=== PATIENT | male | born 1950 | race Two or more races ===

== ENCOUNTER 2020-01-11 06:41 | Outpatient (REF) | payer OTHER, SELFPAY ==
[2020-01-11 09:17] LABS: Ammonia 42 umol/L (13-55)
== END 2020-01-11 06:42 | disposition home or self-care (01) ==
LOC: HO.HSH1N 06:41
PROVIDERS: Visit Provider Internal Medicine Interventional Cardiology
DX: C22.0 Liver cell carcinoma (principal); R41.82 Altered mental status, unspecified
CPT/HCPCS: 36415; 82140

== ENCOUNTER 2020-01-14 08:31 | Outpatient (REF) | payer OTHER, SELFPAY ==
[2020-01-14 12:12] LABS: Alanine Aminotransferase 40 U/L (0-40); Alkaline Phosphatase 63 U/L (39-117); Anion Gap 8 (12-20); Aspartate Amino Transferase 39 U/L (5-37); Bilirubin Total 0.3 mg/dL (0.0-1.0); Blood Urea Nitrogen 25 mg/dL (9-16); Calcium 7.2 mg/dL (8.4-10.2); Carbon Dioxide 27 mmol/L (22-29); Chloride 112 mmol/L (96-108); Estimated Glomerular Filt Rate > 60; Glucose Fasting 93 mg/dL (60-99); Sodium 143 mmol/L (135-145); Total Protein 4.6 g/dL (6.5-8.0)
[2020-01-15 13:06] LABS: Vitamin D 25-OH Total < 3.4 ng/mL (>30)
== END 2020-01-14 08:32 | disposition home or self-care (01) ==
LOC: HO.HSH1N 08:31
PROVIDERS: Visit Provider Internal Medicine Medical Oncology
DX: C22.9 Malignant neoplasm of liver, not specified as primary or secondary (principal); E55.9 Vitamin D deficiency, unspecified
CPT/HCPCS: 80053; 82306

== ENCOUNTER 2020-01-15 07:17 | Outpatient (REF) | payer OTHER, SELFPAY ==
[2020-01-15 08:39] LABS: MANUAL DIFF FLAG NO
[2020-01-15 08:58] LABS: Eosinophils Absolute Auto 0.1 X10*3/uL (0.0-0.4); Eosinophils Percent Auto 1.1 % (0-4); Hematocrit 36.9 % (42-52); Hemoglobin 12.1 g/dl (14.0-18.0); Imm Gran Abs Auto 0.01 X10*3/uL (0.00-0.03); Imm Gran Pct Auto 0.2 % (0.0-0.4); Lymphocytes Absolute Auto 1.9 X10*3/uL (1.2-4.9); Lymphocytes Percent Auto 42.4 % (20-40); Mean Corpuscular HGB Conc 32.8 g/dl (31.0-36.0); Mean Corpuscular Hemoglobin 35.1 pg (27.0-33.0); Mean Platelet Volume 9.4 fL (9.4-12.4); Monocytes Absolute Auto 0.2 X10*3/uL (0.1-1.2); Monocytes Percent Auto 5.1 % (2-11); Neutrophils Absolute Auto 2.3 X10*3/uL (2.0-8.3); Neutrophils Percent Auto 51.2 % (45-73); Platelet Count 225 X10*3/uL (160-400); Red Blood Count 3.45 X10*6/uL (4.60-5.80); Red Cell Distribution Width 14.8 % (11.0-16.0); White Blood Count 4.5 X10*3/uL (4.8-10.8)
[2020-01-19 11:37] LABS: Alpha Fetoprotein 15.5 ng/mL (<6.1)
== END 2020-01-15 07:18 | disposition home or self-care (01) ==
LOC: HO.HSH1N 07:17
PROVIDERS: Visit Provider Internal Medicine Interventional Cardiology
DX: C22.8 Malignant neoplasm of liver, primary, unspecified as to type (principal)
CPT/HCPCS: 36415; 82105; 85025

== ENCOUNTER 2020-02-12 08:01 | Outpatient (REF) | payer OTHER, SELFPAY ==
[2020-02-12 09:28] LABS: MANUAL DIFF FLAG NO
[2020-02-12 09:30] LABS: Basophils Percent Auto 0.2 % (0-2); Eosinophils Absolute Auto 0.1 X10*3/uL (0.0-0.4); Eosinophils Percent Auto 1.1 % (0-4); Hematocrit 28.3 % (42-52); Hemoglobin 9.3 g/dl (14.0-18.0); Imm Gran Abs Auto 0.03 X10*3/uL (0.00-0.03); Imm Gran Pct Auto 0.5 % (0.0-0.4); Lymphocytes Absolute Auto 1.5 X10*3/uL (1.2-4.9); Lymphocytes Percent Auto 26.6 % (20-40); Mean Corpuscular HGB Conc 32.9 g/dl (31.0-36.0); Mean Corpuscular Hemoglobin 34.2 pg (27.0-33.0); Mean Platelet Volume 10.6 fL (9.4-12.4); Monocytes Absolute Auto 0.6 X10*3/uL (0.1-1.2); Monocytes Percent Auto 10.9 % (2-11); Neutrophils Absolute Auto 3.3 X10*3/uL (2.0-8.3); Neutrophils Percent Auto 60.7 % (45-73); Platelet Count 260 X10*3/uL (160-400); Red Blood Count 2.72 X10*6/uL (4.60-5.80); Red Cell Distribution Width 15.3 % (11.0-16.0); White Blood Count 5.5 X10*3/uL (4.8-10.8)
[2020-02-12 09:58] LABS: Alanine Aminotransferase 23 U/L (0-40); Albumin Level 2.1 g/dL (3.5-5.0); Alkaline Phosphatase 102 U/L (39-117); Anion Gap 13 (12-20); Aspartate Amino Transferase 22 U/L (5-37); Bilirubin Total 0.2 mg/dL (0.0-1.0); Blood Urea Nitrogen 24 mg/dL (9-16); Calcium 7.1 mg/dL (8.4-10.2); Carbon Dioxide 22 mmol/L (22-29); Chloride 110 mmol/L (96-108); Estimated Glomerular Filt Rate > 60; Glucose Fasting 87 mg/dL (60-99); Potassium 5.1 mmol/l (3.3-5.1); Sodium 140 mmol/L (135-145); Total Protein 4.9 g/dL (6.5-8.0)
== END 2020-02-12 08:02 | disposition home or self-care (01) ==
LOC: HO.HSH1N 08:01
PROVIDERS: Visit Provider Internal Medicine Interventional Cardiology
DX: C22.9 Malignant neoplasm of liver, not specified as primary or secondary (principal); I10 Essential (primary) hypertension; J44.9 Chronic obstructive pulmonary disease, unspecified
CPT/HCPCS: 36415; 80053; 85025

== ENCOUNTER 2020-02-18 08:05 | Outpatient (REF) | payer OTHER, SELFPAY ==
--- NOTE | 2020-02-18 08:10 | CT_ITS ---
EXAMINATION: CT ABDOMEN AND PELVIS WITH CONTRAST CLINICAL INFORMATION: Follow-up liver lesions. COMPARISON: Multiple priors, most recently 11/10/2019. TECHNIQUE: Multidetector volumetric images were obtained from the superior aspect of the liver through the pubic symphysis following administration 85 mL of Omnipaque 350 intravenous contrast. Sagittal and coronal reformatted images were obtained on the technologist's workstation. Oral contrast: Yes This CT examination was performed using dose optimization techniques as appropriate, variously including the following: *Automated exposure control *Adjustment of mA and/or kV according to patient size (this includes techniques or standardized protocols for targeted exams where dose is matched to indication/reason for exam; i.e. extremities or head) *Use of iterative reconstruction technique DLP: 334 mGy-cm FINDINGS: LUNG BASES: There is linear atelectasis of the right lung base. The visualized cardiac structures are unremarkable. LIVER, GALLBLADDER, AND BILIARY TREE: Status post partial right hepatectomy. Ablation of the previously seen mass in segment 5. The ablation bed measures 4.8 x 3.7 cm. This is decreased in prominence from prior. The hypoattenuating area seen on series 3 image 12 currently measures 1.5 cm, similar to prior. The more central hypoattenuating area measuring 0.9 cm on series 3 image 16 is decreased in prominence from prior. Prior hyperenhancement adjacent to the adjacent bed has decreased and normalized. The adjacent small focus of hypoattenuation seen on prior does remain, though is more faintly visualized and decreased in prominence, series 4 image 58. Hypoenhancing mass adjacent to the caudate is again noted, measuring 4.9 x 3.3 cm. This is similar to prior. Area of subtle hypoattenuation and lobulation more inferiorly in segment 5 of the liver measures 3.8 x 3 cm. This is similar to prior. There is an adjacent area of more decreased attenuation as seen on series 4 image 207 which is decreased in prominence from prior. There are additional subtle hypoattenuating foci scattered within the liver parenchyma. No new lesions are seen. No growing lesions are seen. Previously seen subcapsular hyperattenuating foci are not currently visualized. The gallbladder is absent. Prominent common bile duct is unchanged, measuring 1.5 cm. No ductal filling defect. PANCREAS: Unremarkable. SPLEEN: Unremarkable. ADRENAL GLANDS: Unremarkable. KIDNEYS AND URETERS: The kidneys are normal in size, shape, and attenuation. No hydronephrosis, hydroureter, or calculi seen. No perinephric stranding. Multiple bilateral renal cysts are again noted. BLADDER: Unremarkable. GASTROINTESTINAL TRACT: The stomach is decompressed with no gross abnormality. Normal caliber small bowel. No obstruction. Colonic diverticulosis without diverticulitis. Moderate colonic stool burden. No wall thickening or inflammatory changes of the colon. No free air or free fluid. ABDOMINAL WALL: No significant hernia is appreciated. LYMPH NODES: Normal. VASCULAR: The aorta is normal in caliber with mild to moderate atherosclerotic calcification. There is mild stenosis of the left common iliac artery caused by noncalcified plaque. Areas of stenosis are also seen throughout the right external iliac artery. These findings are similar to prior. The portal vein is patent. There is an area of focal narrowing of the right portal vein as seen on series 4 image 85. This does return to normal caliber immediately beyond this level. PELVIC VISCERA: The prostate and seminal vesicles are unremarkable. OSSEOUS STRUCTURES: No acute or suspicious osseous abnormality. Mild degenerative changes of the spine. L5-S1 disc bulge with vacuum disc phenomenon. CT/CT abdomen pelvis w con IMPRESSION: Partial right hepatectomy. Decreased prominence of posttreatment change at segment 5 of the liver. Adjacent hypoattenuating lesions are either similar or decreased in size. Hypoattenuating heterogeneous ablation site at the caudate is similar to the prior study. There is a somewhat hypoattenuating lobulated area in segment 5 of the liver more inferiorly which is nonspecific. The overall size of this area is similar to prior. There is a peripheral area of significant hypoattenuation which has decreased in prominence from prior.
[2020-02-18] MEDS: iohexoL 350 MG/ML 100 ML INFUS..BTL IV (10:43)
[2020-02-18] MEDS: Barium Sulfate Oral (Mocha) 450 ML ORAL.SUSP 900 ML PO (10:47)
== END 2020-02-18 08:06 | disposition home or self-care (01) ==
LOC: HO.CT 08:05
PROVIDERS: PCP Internal Medicine Interventional Cardiology; Visit Provider Internal Medicine Medical Oncology
DX: C22.0 Liver cell carcinoma (principal)
CPT/HCPCS: 74177; Q9967

== ENCOUNTER → 2020-02-23 07:45 | Outpatient (BNVA) | payer OTHER, SELFPAY | PROVIDERS: Visit Provider Physician Assistant | DX: R13.10 Dysphagia, unspecified (principal) | CPT/HCPCS: 99212 ==

== ENCOUNTER 2020-02-24 08:29 | Outpatient (REF) | payer OTHER, SELFPAY ==
[2020-02-24 08:27] LABS: MANUAL DIFF FLAG NO
[2020-02-24 08:32] LABS: Basophils Percent Auto 0.4 % (0-2); Eosinophils Absolute Auto 0.1 X10*3/uL (0.0-0.4); Eosinophils Percent Auto 1.4 % (0-4); Hematocrit 27.1 % (42-52); Hemoglobin 8.6 g/dl (14.0-18.0); Imm Gran Pct Auto 2.1 % (0.0-0.4); Lymphocytes Percent Auto 21.1 % (20-40); Mean Corpuscular HGB Conc 31.7 g/dl (31.0-36.0); Mean Corpuscular Hemoglobin 32.6 pg (27.0-33.0); Mean Corpuscular Volume 102.7 fL (80-98); Mean Platelet Volume 9.5 fL (9.4-12.4); Monocytes Absolute Auto 1.1 X10*3/uL (0.1-1.2); Monocytes Percent Auto 11.8 % (2-11); NRBC Pct Auto 0.2 /100WBC (0.0-0.2); Neutrophils Percent Auto 63.2 % (45-73); Platelet Count 562 X10*3/uL (160-400); Red Blood Count 2.64 X10*6/uL (4.60-5.80); White Blood Count 9.5 X10*3/uL (4.8-10.8)
[2020-02-24 09:31] LABS: Alanine Aminotransferase 30 U/L (0-40); Albumin Level 2.5 g/dL (3.5-5.0); Alkaline Phosphatase 261 U/L (39-117); Anion Gap 11 (12-20); Aspartate Amino Transferase 29 U/L (5-37); Bilirubin Total 0.2 mg/dL (0.0-1.0); Blood Urea Nitrogen 24 mg/dL (9-16); Calcium 7.6 mg/dL (8.4-10.2); Carbon Dioxide 25 mmol/L (22-29); Chloride 104 mmol/L (96-108); Estimated Glomerular Filt Rate > 60; Glucose Fasting 92 mg/dL (60-99); Sodium 135 mmol/L (135-145); Total Protein 5.8 g/dL (6.5-8.0)
[2020-02-24 09:53] LABS: Free T4 (Free Thyroxine) 0.77 ng/dL (0.71-1.85); Thyroid Stimulating Hormone 32.79 uIU/mL (0.32-4.0)
[2020-02-24 11:52] LABS: Iron 29 mcg/dL (45-160); Percent Iron Saturation 12 % (15-50); Total Iron Binding Capacity 239 mcg/dL (228-428); Unsaturated Iron Binding 210 ug/dL
[2020-02-24 12:26] LABS: Folate 3.4 ng/mL (> or = 4.0); Vitamin B12 483 pg/mL (200-900)
== END 2020-02-24 08:30 | disposition home or self-care (01) ==
LOC: HO.HSH1N 08:29
PROVIDERS: Visit Provider Internal Medicine Interventional Cardiology
DX: D64.9 Anemia, unspecified (principal); C22.8 Malignant neoplasm of liver, primary, unspecified as to type; I10 Essential (primary) hypertension; E03.9 Hypothyroidism, unspecified; J44.9 Chronic obstructive pulmonary disease, unspecified
CPT/HCPCS: 36415; 80053; 82607; 82746; 83540; 84439; 84443; 85025

== ENCOUNTER 2020-02-25 11:24 | Outpatient (REF) | payer OTHER, SELFPAY | END 2020-02-25 11:25 | disposition home or self-care (01) | LOC: HO.HSH1N 11:24 | PROVIDERS: Visit Provider Internal Medicine Interventional Cardiology | DX: Z13.89 Encounter for screening for other disorder (principal) | CPT/HCPCS: 82272 ==

== ENCOUNTER 2020-02-28 20:00 | Outpatient (REF) | payer OTHER, SELFPAY ==
[2020-02-29 09:49] LABS: OBS Int Ctl Valid YES; OBS1 POS (NEG)
== END 2020-02-28 20:01 | disposition home or self-care (01) ==
LOC: HO.HSH1N 20:00
PROVIDERS: Visit Provider Internal Medicine Interventional Cardiology
DX: D64.9 Anemia, unspecified (principal)
CPT/HCPCS: 82272

== ENCOUNTER 2020-03-02 07:18 | Outpatient (REF) | payer OTHER, SELFPAY ==
[2020-03-02 07:31] LABS: Anion Gap 15 (12-20); Blood Urea Nitrogen 27 mg/dL (9-16); Carbon Dioxide 23 mmol/L (22-29); Chloride 102 mmol/L (96-108); Estimated Glomerular Filt Rate 58; Sodium 135 mmol/L (135-145)
== END 2020-03-02 07:19 | disposition home or self-care (01) ==
LOC: HO.HSH1N 07:18
PROVIDERS: Visit Provider Internal Medicine Interventional Cardiology
DX: R60.9 Edema, unspecified (principal)
CPT/HCPCS: 80051; 82565; 84520

== ENCOUNTER 2020-03-25 07:15 | Outpatient (REF) | payer OTHER, SELFPAY ==
[2020-03-25 08:17] LABS: MANUAL DIFF FLAG NO
[2020-03-25 08:22] LABS: Basophils Percent Auto 0.6 % (0-2); Eosinophils Absolute Auto 0.4 X10*3/uL (0.0-0.4); Eosinophils Percent Auto 6.9 % (0-4); Hematocrit 29.3 % (42-52); Hemoglobin 9.1 g/dl (14.0-18.0); Lymphocytes Absolute Auto 1.8 X10*3/uL (1.2-4.9); Lymphocytes Percent Auto 33.3 % (20-40); Mean Corpuscular HGB Conc 31.1 g/dl (31.0-36.0); Mean Corpuscular Hemoglobin 29.9 pg (27.0-33.0); Mean Corpuscular Volume 96.4 fL (80-98); Mean Platelet Volume 9.5 fL (9.4-12.4); Monocytes Absolute Auto 0.3 X10*3/uL (0.1-1.2); Monocytes Percent Auto 5.2 % (2-11); Neutrophils Absolute Auto 2.9 X10*3/uL (2.0-8.3); Platelet Count 284 X10*3/uL (160-400); Red Blood Count 3.04 X10*6/uL (4.60-5.80); Red Cell Distribution Width 16.4 % (11.0-16.0); White Blood Count 5.4 X10*3/uL (4.8-10.8)
[2020-03-25 09:18] LABS: Alanine Aminotransferase 47 U/L (0-40); Albumin Level 2.1 g/dL (3.5-5.0); Alkaline Phosphatase 104 U/L (39-117); Anion Gap 8 (12-20); Aspartate Amino Transferase 52 U/L (5-37); Bilirubin Total 0.2 mg/dL (0.0-1.0); Blood Urea Nitrogen 20 mg/dL (9-16); Calcium 7.2 mg/dL (8.4-10.2); Carbon Dioxide 28 mmol/L (22-29); Chloride 110 mmol/L (96-108); Estimated Glomerular Filt Rate > 60; Glucose Fasting 87 mg/dL (60-99); Potassium 4.3 mmol/l (3.3-5.1); Sodium 142 mmol/L (135-145); Total Protein 5.4 g/dL (6.5-8.0)
[2020-03-25 09:28] LABS: Thyroid Stimulating Hormone 5.16 uIU/mL (0.32-4.0)
== END 2020-03-25 07:16 | disposition home or self-care (01) ==
LOC: HO.HSH1N 07:15
PROVIDERS: Visit Provider Internal Medicine Interventional Cardiology
DX: C22.9 Malignant neoplasm of liver, not specified as primary or secondary (principal)
CPT/HCPCS: 36415; 80053; 84443; 85025

== ENCOUNTER 2020-03-30 11:26 | Outpatient (REF) | payer OTHER, SELFPAY | END 2020-03-30 11:27 | disposition home or self-care (01) | LOC: HO.HSH1N 11:26 | PROVIDERS: Visit Provider Internal Medicine Interventional Cardiology | DX: L12.0 Bullous pemphigoid (principal) | CPT/HCPCS: 88300; 88305; 88312 ==

== ENCOUNTER 2020-03-31 05:38 | Outpatient (REF) | payer OTHER, SELFPAY ==
[2020-03-31 07:50] LABS: Anion Gap 7 (12-20); Blood Urea Nitrogen 28 mg/dL (9-16); Carbon Dioxide 27 mmol/L (22-29); Chloride 111 mmol/L (96-108); Estimated Glomerular Filt Rate > 60; Potassium 4.2 mmol/l (3.3-5.1); Sodium 141 mmol/L (135-145)
[2020-03-31 08:11] LABS: Vitamin D 25-OH Total 14.1 ng/mL (>30)
== END 2020-03-31 05:39 | disposition home or self-care (01) ==
LOC: HO.HSH1N 05:38
PROVIDERS: Visit Provider Internal Medicine Interventional Cardiology
DX: R60.9 Edema, unspecified (principal); E03.9 Hypothyroidism, unspecified
CPT/HCPCS: 80051; 82306; 82565; 84520

== ENCOUNTER 2020-04-07 07:10 | Outpatient (REF) | payer OTHER, SELFPAY ==
[2020-04-07 09:08] LABS: MANUAL DIFF FLAG NO
[2020-04-07 09:09] LABS: Eosinophils Percent Auto 0.4 % (0-4); Hematocrit 32.3 % (42-52); Hemoglobin 10.1 g/dl (14.0-18.0); Imm Gran Abs Auto 0.09 X10*3/uL (0.00-0.03); Imm Gran Pct Auto 0.9 % (0.0-0.4); Lymphocytes Absolute Auto 1.7 X10*3/uL (1.2-4.9); Lymphocytes Percent Auto 16.8 % (20-40); Mean Corpuscular HGB Conc 31.3 g/dl (31.0-36.0); Mean Corpuscular Hemoglobin 30.6 pg (27.0-33.0); Mean Corpuscular Volume 97.9 fL (80-98); Mean Platelet Volume 9.9 fL (9.4-12.4); Monocytes Absolute Auto 0.5 X10*3/uL (0.1-1.2); Monocytes Percent Auto 5.5 % (2-11); NRBC Pct Auto 0.4 /100WBC (0.0-0.2); Neutrophils Absolute Auto 7.5 X10*3/uL (2.0-8.3); Neutrophils Percent Auto 76.4 % (45-73); Platelet Count 309 X10*3/uL (160-400); Red Cell Distribution Width 18.5 % (11.0-16.0); White Blood Count 9.8 X10*3/uL (4.8-10.8)
[2020-04-07 10:35] LABS: Alanine Aminotransferase 47 U/L (0-40); Albumin Level 2.2 g/dL (3.5-5.0); Alkaline Phosphatase 105 U/L (39-117); Anion Gap 12 (12-20); Aspartate Amino Transferase 29 U/L (5-37); Bilirubin Total 0.2 mg/dL (0.0-1.0); Blood Urea Nitrogen 33 mg/dL (9-16); Calcium 7.5 mg/dL (8.4-10.2); Carbon Dioxide 25 mmol/L (22-29); Chloride 111 mmol/L (96-108); Estimated Glomerular Filt Rate > 60; Glucose Fasting 88 mg/dL (60-99); Potassium 4.7 mmol/l (3.3-5.1); Sodium 143 mmol/L (135-145); Total Protein 5.2 g/dL (6.5-8.0)
== END 2020-04-07 07:11 | disposition home or self-care (01) ==
LOC: HO.HSH1N 07:10
PROVIDERS: Visit Provider Internal Medicine Interventional Cardiology
DX: C22.9 Malignant neoplasm of liver, not specified as primary or secondary (principal)
CPT/HCPCS: 36415; 80053; 85025

== ENCOUNTER 2020-04-18 06:58 | Outpatient (REF) | payer OTHER, SELFPAY ==
[2020-04-18 07:02] LABS: MANUAL DIFF FLAG NO
[2020-04-18 08:08] LABS: Basophils Percent Auto 0.1 % (0-2); Eosinophils Percent Auto 0.1 % (0-4); Hematocrit 29.5 % (42-52); Hemoglobin 9.1 g/dl (14.0-18.0); Imm Gran Abs Auto 0.14 X10*3/uL (0.00-0.03); Lymphocytes Absolute Auto 1.2 X10*3/uL (1.2-4.9); Lymphocytes Percent Auto 9.2 % (20-40); Mean Corpuscular HGB Conc 30.8 g/dl (31.0-36.0); Mean Corpuscular Volume 97.4 fL (80-98); Mean Platelet Volume 9.9 fL (9.4-12.4); Monocytes Absolute Auto 0.4 X10*3/uL (0.1-1.2); Monocytes Percent Auto 3.1 % (2-11); Neutrophils Absolute Auto 11.6 X10*3/uL (2.0-8.3); Neutrophils Percent Auto 86.5 % (45-73); Platelet Count 400 X10*3/uL (160-400); Red Blood Count 3.03 X10*6/uL (4.60-5.80); Red Cell Distribution Width 19.2 % (11.0-16.0); White Blood Count 13.4 X10*3/uL (4.8-10.8)
[2020-04-18 08:38] LABS: Alanine Aminotransferase 26 U/L (0-40); Albumin Level 2.2 g/dL (3.5-5.0); Alkaline Phosphatase 193 U/L (39-117); Anion Gap 12 (12-20); Aspartate Amino Transferase 22 U/L (5-37); Bilirubin Total < 0.2 mg/dL (0.0-1.0); Blood Urea Nitrogen 24 mg/dL (9-16); Calcium 7.5 mg/dL (8.4-10.2); Carbon Dioxide 25 mmol/L (22-29); Chloride 110 mmol/L (96-108); Estimated Glomerular Filt Rate > 60; Glucose Fasting 90 mg/dL (60-99); Potassium 4.9 mmol/l (3.3-5.1); Sodium 142 mmol/L (135-145); Total Protein 5.4 g/dL (6.5-8.0)
== END 2020-04-18 06:59 | disposition home or self-care (01) ==
LOC: HO.HSH4W 06:58
PROVIDERS: Visit Provider Internal Medicine
DX: I10 Essential (primary) hypertension (principal)
CPT/HCPCS: 36415; 80053; 85025

== ENCOUNTER 2020-04-27 06:41 | Outpatient (REF) | payer OTHER, SELFPAY ==
[2020-04-27 09:50] LABS: MANUAL DIFF FLAG NO
[2020-04-27 09:56] LABS: Basophils Percent Auto 0.3 % (0-2); Eosinophils Absolute Auto 0.1 X10*3/uL (0.0-0.4); Eosinophils Percent Auto 1.2 % (0-4); Hematocrit 30.5 % (42-52); Hemoglobin 9.4 g/dl (14.0-18.0); Imm Gran Abs Auto 0.31 X10*3/uL (0.00-0.03); Imm Gran Pct Auto 2.7 % (0.0-0.4); Lymphocytes Absolute Auto 2.1 X10*3/uL (1.2-4.9); Lymphocytes Percent Auto 18.1 % (20-40); Mean Corpuscular HGB Conc 30.8 g/dl (31.0-36.0); Mean Corpuscular Hemoglobin 29.8 pg (27.0-33.0); Mean Corpuscular Volume 96.8 fL (80-98); Mean Platelet Volume 9.9 fL (9.4-12.4); Monocytes Absolute Auto 0.8 X10*3/uL (0.1-1.2); Monocytes Percent Auto 6.7 % (2-11); NRBC Pct Auto 0.5 /100WBC (0.0-0.2); Neutrophils Absolute Auto 8.1 X10*3/uL (2.0-8.3); Platelet Count 387 X10*3/uL (160-400); Red Blood Count 3.15 X10*6/uL (4.60-5.80); Red Cell Distribution Width 20.9 % (11.0-16.0); White Blood Count 11.4 X10*3/uL (4.8-10.8)
[2020-04-27 10:22] LABS: Anion Gap 13 (12-20); Carbon Dioxide 26 mmol/L (22-29); Chloride 108 mmol/L (96-108); Estimated Glomerular Filt Rate > 60; Potassium 5.2 mmol/l (3.3-5.1); Sodium 142 mmol/L (135-145)
[2020-04-27 10:56] LABS: Blood Urea Nitrogen 38 mg/dL (9-16)
== END 2020-04-27 06:42 | disposition home or self-care (01) ==
LOC: HO.HSH4W 06:41
PROVIDERS: Visit Provider Internal Medicine Interventional Cardiology
DX: E03.9 Hypothyroidism, unspecified (principal); C22.0 Liver cell carcinoma; B19.20 Unspecified viral hepatitis C without hepatic coma
CPT/HCPCS: 36415; 80051; 82565; 84443; 84520; 85025

== ENCOUNTER 2020-04-29 07:00 | Outpatient (REF) | payer OTHER, SELFPAY ==
[2020-04-29 09:24] LABS: Anion Gap 12 (12-20); Carbon Dioxide 26 mmol/L (22-29); Chloride 106 mmol/L (96-108); Potassium 5.3 mmol/l (3.3-5.1); Sodium 139 mmol/L (135-145)
== END 2020-04-29 07:01 | disposition home or self-care (01) ==
LOC: HO.HSH4W 07:00
PROVIDERS: Visit Provider Internal Medicine Interventional Cardiology
DX: E87.5 Hyperkalemia (principal)
CPT/HCPCS: 36415; 80051

== ENCOUNTER 2020-05-05 06:58 | Outpatient (REF) | payer OTHER, SELFPAY ==
[2020-05-05 06:37] LABS: MANUAL DIFF FLAG NO
[2020-05-05 06:57] LABS: Basophils Percent Auto 0.2 % (0-2); Eosinophils Absolute Auto 0.1 X10*3/uL (0.0-0.4); Eosinophils Percent Auto 0.5 % (0-4); Hematocrit 31.8 % (42-52); Hemoglobin 10.1 g/dl (14.0-18.0); Imm Gran Abs Auto 0.24 X10*3/uL (0.00-0.03); Imm Gran Pct Auto 1.8 % (0.0-0.4); Lymphocytes Absolute Auto 1.6 X10*3/uL (1.2-4.9); Lymphocytes Percent Auto 12.1 % (20-40); Mean Corpuscular HGB Conc 31.8 g/dl (31.0-36.0); Mean Corpuscular Hemoglobin 30.5 pg (27.0-33.0); Mean Corpuscular Volume 96.1 fL (80-98); Mean Platelet Volume 11.3 fL (9.4-12.4); Monocytes Absolute Auto 0.9 X10*3/uL (0.1-1.2); Monocytes Percent Auto 6.8 % (2-11); NRBC Pct Auto 0.4 /100WBC (0.0-0.2); Neutrophils Absolute Auto 10.4 X10*3/uL (2.0-8.3); Neutrophils Percent Auto 78.6 % (45-73); Platelet Count 249 X10*3/uL (160-400); Red Blood Count 3.31 X10*6/uL (4.60-5.80); Red Cell Distribution Width 20.7 % (11.0-16.0); White Blood Count 13.2 X10*3/uL (4.8-10.8)
[2020-05-05 07:11] LABS: Alanine Aminotransferase 49 U/L (0-40); Albumin Level 2.8 g/dL (3.5-5.0); Alkaline Phosphatase 236 U/L (39-117); Anion Gap 15 (12-20); Aspartate Amino Transferase 26 U/L (5-37); Bilirubin Total 0.4 mg/dL (0.0-1.0); Blood Urea Nitrogen 51 mg/dL (9-16); Calcium 8.2 mg/dL (8.4-10.2); Carbon Dioxide 23 mmol/L (22-29); Chloride 110 mmol/L (96-108); Estimated Glomerular Filt Rate 53; Glucose Fasting 73 mg/dL (60-99); Potassium 4.7 mmol/l (3.3-5.1); Sodium 143 mmol/L (135-145); Total Protein 5.5 g/dL (6.5-8.0)
== END 2020-05-05 06:59 | disposition home or self-care (01) ==
LOC: HO.HSH4W 06:58
PROVIDERS: Visit Provider Internal Medicine
DX: C22.7 Other specified carcinomas of liver (principal); I10 Essential (primary) hypertension
CPT/HCPCS: 36415; 80053; 85025

== ENCOUNTER 2020-05-19 | Outpatient (REF) | payer OTHER, SELFPAY ==
[2020-05-19 08:41] LABS: MANUAL DIFF FLAG NO
[2020-05-19 08:42] LABS: Basophils Percent Auto 0.2 % (0-2); Eosinophils Absolute Auto 0.1 X10*3/uL (0.0-0.4); Eosinophils Percent Auto 0.7 % (0-4); Hematocrit 36.9 % (42-52); Hemoglobin 11.5 g/dl (14.0-18.0); Imm Gran Abs Auto 0.11 X10*3/uL (0.00-0.03); Imm Gran Pct Auto 0.9 % (0.0-0.4); Lymphocytes Absolute Auto 1.4 X10*3/uL (1.2-4.9); Lymphocytes Percent Auto 11.4 % (20-40); Mean Corpuscular HGB Conc 31.2 g/dl (31.0-36.0); Mean Corpuscular Hemoglobin 29.7 pg (27.0-33.0); Mean Corpuscular Volume 95.3 fL (80-98); Mean Platelet Volume 10.5 fL (9.4-12.4); Monocytes Absolute Auto 0.6 X10*3/uL (0.1-1.2); Monocytes Percent Auto 5.3 % (2-11); Neutrophils Absolute Auto 9.9 X10*3/uL (2.0-8.3); Neutrophils Percent Auto 81.5 % (45-73); Platelet Count 296 X10*3/uL (160-400); Red Blood Count 3.87 X10*6/uL (4.60-5.80); Red Cell Distribution Width 19.9 % (11.0-16.0); White Blood Count 12.1 X10*3/uL (4.8-10.8)
[2020-05-19 09:19] LABS: Anion Gap 14 (12-20); Blood Urea Nitrogen 57 mg/dL (9-16); Carbon Dioxide 22 mmol/L (22-29); Chloride 112 mmol/L (96-108); Estimated Glomerular Filt Rate 43; Potassium 5.2 mmol/L (3.3-5.1); Sodium 143 mmol/L (135-145)
== END 2020-05-19 00:01 | disposition home or self-care (01) ==
LOC: HO.HSH1N
PROVIDERS: Visit Provider Internal Medicine Interventional Cardiology
DX: K76.9 Liver disease, unspecified (principal); M19.90 Unspecified osteoarthritis, unspecified site
CPT/HCPCS: 36415; 80051; 82565; 84520; 85025

== ENCOUNTER 2020-05-26 07:19 | Outpatient (REF) | payer OTHER, SELFPAY ==
[2020-05-26 08:36] LABS: Anion Gap 15 (12-20); Blood Urea Nitrogen 48 mg/dL (9-16); Carbon Dioxide 21 mmol/L (22-29); Chloride 110 mmol/L (96-108); Estimated Glomerular Filt Rate 60; Glucose Random 133 mg/dL (60-115); Sodium 141 mmol/L (135-145)
== END 2020-05-26 07:20 | disposition home or self-care (01) ==
LOC: HO.HSH1N 07:19
PROVIDERS: Visit Provider Internal Medicine Interventional Cardiology
DX: N19 Unspecified kidney failure (principal)
CPT/HCPCS: 36415; 80048

== ENCOUNTER 2020-06-03 05:47 | Outpatient (REF) | payer OTHER, SELFPAY ==
[2020-06-03 09:17] LABS: MANUAL DIFF FLAG NO
[2020-06-03 09:24] LABS: Basophils Percent Auto 0.2 % (0-2); Eosinophils Absolute Auto 0.1 X10*3/uL (0.0-0.4); Hematocrit 32.6 % (42-52); Hemoglobin 9.9 g/dl (14.0-18.0); Imm Gran Abs Auto 0.14 X10*3/uL (0.00-0.03); Imm Gran Pct Auto 1.4 % (0.0-0.4); Lymphocytes Absolute Auto 1.3 X10*3/uL (1.2-4.9); Lymphocytes Percent Auto 13.1 % (20-40); Mean Corpuscular HGB Conc 30.4 g/dl (31.0-36.0); Mean Corpuscular Hemoglobin 28.9 pg (27.0-33.0); Mean Corpuscular Volume 95.3 fL (80-98); Mean Platelet Volume 10.5 fL (9.4-12.4); Monocytes Absolute Auto 0.5 X10*3/uL (0.1-1.2); Monocytes Percent Auto 5.1 % (2-11); NRBC Pct Auto 0.2 /100WBC (0.0-0.2); Neutrophils Percent Auto 79.2 % (45-73); Platelet Count 225 X10*3/uL (160-400); Red Blood Count 3.42 X10*6/uL (4.60-5.80); Red Cell Distribution Width 19.4 % (11.0-16.0); White Blood Count 10.1 X10*3/uL (4.8-10.8)
== END 2020-06-03 05:48 | disposition home or self-care (01) ==
LOC: HO.HSH1N 05:47
PROVIDERS: Visit Provider Internal Medicine Interventional Cardiology
DX: C22.0 Liver cell carcinoma (principal); I10 Essential (primary) hypertension; J44.9 Chronic obstructive pulmonary disease, unspecified
CPT/HCPCS: 36415; 85025

== ENCOUNTER 2020-06-16 07:29 | Outpatient (REF) | payer OTHER, SELFPAY ==
[2020-06-16 08:22] LABS: MANUAL DIFF FLAG NO
[2020-06-16 08:25] LABS: Basophils Percent Auto 0.2 % (0-2); Eosinophils Absolute Auto 0.1 X10*3/uL (0.0-0.4); Eosinophils Percent Auto 1.2 % (0-4); Hematocrit 30.4 % (42-52); Hemoglobin 9.4 g/dl (14.0-18.0); Imm Gran Pct Auto 1.2 % (0.0-0.4); Lymphocytes Absolute Auto 1.3 X10*3/uL (1.2-4.9); Lymphocytes Percent Auto 14.7 % (20-40); Mean Corpuscular HGB Conc 30.9 g/dl (31.0-36.0); Mean Corpuscular Hemoglobin 28.8 pg (27.0-33.0); Mean Corpuscular Volume 93.3 fL (80-98); Mean Platelet Volume 10.4 fL (9.4-12.4); Monocytes Absolute Auto 0.5 X10*3/uL (0.1-1.2); Monocytes Percent Auto 6.2 % (2-11); NRBC Pct Auto 0.5 /100WBC (0.0-0.2); Neutrophils Absolute Auto 6.5 X10*3/uL (2.0-8.3); Neutrophils Percent Auto 76.5 % (45-73); Platelet Count 260 X10*3/uL (160-400); Red Blood Count 3.26 X10*6/uL (4.60-5.80); Red Cell Distribution Width 18.6 % (11.0-16.0); White Blood Count 8.5 X10*3/uL (4.8-10.8)
== END 2020-06-16 07:30 | disposition home or self-care (01) ==
LOC: HO.HSH1N 07:29
PROVIDERS: Visit Provider Internal Medicine Interventional Cardiology
DX: C22.9 Malignant neoplasm of liver, not specified as primary or secondary (principal); J44.9 Chronic obstructive pulmonary disease, unspecified; I10 Essential (primary) hypertension
CPT/HCPCS: 36415; 85025

== ENCOUNTER 2020-06-30 05:43 | Outpatient (REF) | payer OTHER, SELFPAY ==
[2020-06-30 08:57] LABS: MANUAL DIFF FLAG NO
[2020-06-30 09:00] LABS: Basophils Percent Auto 0.3 % (0-2); Eosinophils Absolute Auto 0.1 X10*3/uL (0.0-0.4); Eosinophils Percent Auto 1.4 % (0-4); Hemoglobin 10.3 g/dl (14.0-18.0); Imm Gran Abs Auto 0.05 X10*3/uL (0.00-0.03); Imm Gran Pct Auto 0.6 % (0.0-0.4); Lymphocytes Absolute Auto 1.2 X10*3/uL (1.2-4.9); Lymphocytes Percent Auto 14.6 % (20-40); Mean Corpuscular HGB Conc 30.3 g/dl (31.0-36.0); Mean Corpuscular Hemoglobin 28.5 pg (27.0-33.0); Mean Corpuscular Volume 94.2 fL (80-98); Mean Platelet Volume 12.1 fL (9.4-12.4); Monocytes Absolute Auto 0.4 X10*3/uL (0.1-1.2); Monocytes Percent Auto 5.5 % (2-11); Neutrophils Absolute Auto 6.1 X10*3/uL (2.0-8.3); Neutrophils Percent Auto 77.6 % (45-73); Platelet Count 234 X10*3/uL (160-400); Red Blood Count 3.61 X10*6/uL (4.60-5.80); Red Cell Distribution Width 19.1 % (11.0-16.0); White Blood Count 7.9 X10*3/uL (4.8-10.8)
== END 2020-06-30 05:44 | disposition home or self-care (01) ==
LOC: HO.HSH1N 05:43
PROVIDERS: Visit Provider Internal Medicine Interventional Cardiology
DX: C22.0 Liver cell carcinoma (principal); I10 Essential (primary) hypertension; J44.9 Chronic obstructive pulmonary disease, unspecified
CPT/HCPCS: 36415; 85025

== ENCOUNTER 2020-07-08 05:35 | Outpatient (REF) | payer OTHER, SELFPAY ==
[2020-07-08 09:51] LABS: Alanine Aminotransferase 76 U/L (0-40); Albumin Level 2.8 g/dL (3.5-5.0); Alkaline Phosphatase 445 U/L (39-117); Anion Gap 13 (12-20); Aspartate Amino Transferase 125 U/L (5-37); Bilirubin Direct 0.4 mg/dL (0.0-0.5); Bilirubin Total 0.7 mg/dL (0.0-1.0); Blood Urea Nitrogen 33 mg/dL (9-16); Calcium 7.9 mg/dL (8.4-10.2); Carbon Dioxide 23 mmol/L (22-29); Chloride 111 mmol/L (96-108); Estimated Glomerular Filt Rate 53; Glucose Random 82 mg/dL (60-115); Potassium 4.9 mmol/L (3.3-5.1); Sodium 142 mmol/L (135-145)
[2020-07-08 09:56] LABS: Thyroid Stimulating Hormone 4.02 uIU/mL (0.32-4.0)
== END 2020-07-08 05:36 | disposition home or self-care (01) ==
LOC: HO.HSH1N 05:35
PROVIDERS: Visit Provider Internal Medicine Interventional Cardiology
DX: R60.9 Edema, unspecified (principal); E03.9 Hypothyroidism, unspecified; C22.0 Liver cell carcinoma
CPT/HCPCS: 36415; 80048; 80076; 84443

== ENCOUNTER 2020-07-14 05:41 | Outpatient (REF) | payer OTHER, SELFPAY ==
[2020-07-14 08:19] LABS: MANUAL DIFF FLAG NO
[2020-07-14 08:23] LABS: Basophils Percent Auto 0.4 % (0-2); Eosinophils Absolute Auto 0.1 X10*3/uL (0.0-0.4); Eosinophils Percent Auto 1.6 % (0-4); Hematocrit 31.4 % (42-52); Imm Gran Abs Auto 0.05 X10*3/uL (0.00-0.03); Imm Gran Pct Auto 0.6 % (0.0-0.4); Lymphocytes Absolute Auto 1.3 X10*3/uL (1.2-4.9); Mean Corpuscular HGB Conc 31.8 g/dl (31.0-36.0); Mean Corpuscular Hemoglobin 29.5 pg (27.0-33.0); Mean Corpuscular Volume 92.6 fL (80-98); Mean Platelet Volume 12.3 fL (9.4-12.4); Monocytes Absolute Auto 0.6 X10*3/uL (0.1-1.2); Monocytes Percent Auto 7.3 % (2-11); Neutrophils Absolute Auto 5.9 X10*3/uL (2.0-8.3); Neutrophils Percent Auto 74.1 % (45-73); Platelet Count 244 X10*3/uL (160-400); Red Blood Count 3.39 X10*6/uL (4.60-5.80); Red Cell Distribution Width 19.7 % (11.0-16.0); White Blood Count 7.9 X10*3/uL (4.8-10.8)
== END 2020-07-14 05:42 | disposition home or self-care (01) ==
LOC: HO.HSH1N 05:41
PROVIDERS: Visit Provider Internal Medicine Interventional Cardiology
DX: C22.9 Malignant neoplasm of liver, not specified as primary or secondary (principal); J44.9 Chronic obstructive pulmonary disease, unspecified; I10 Essential (primary) hypertension
CPT/HCPCS: 36415; 85025

== ENCOUNTER 2020-07-28 06:12 | Outpatient (REF) | payer OTHER, SELFPAY ==
[2020-07-28 08:00] LABS: MANUAL DIFF FLAG NO
[2020-07-28 08:11] LABS: Basophils Percent Auto 0.3 % (0-2); Eosinophils Absolute Auto 0.1 X10*3/uL (0.0-0.4); Eosinophils Percent Auto 1.6 % (0-4); Hematocrit 31.1 % (42-52); Imm Gran Abs Auto 0.04 X10*3/uL (0.00-0.03); Imm Gran Pct Auto 0.6 % (0.0-0.4); Lymphocytes Absolute Auto 1.1 X10*3/uL (1.2-4.9); Lymphocytes Percent Auto 17.4 % (20-40); Mean Corpuscular HGB Conc 32.2 g/dl (31.0-36.0); Mean Corpuscular Hemoglobin 28.5 pg (27.0-33.0); Mean Corpuscular Volume 88.6 fL (80-98); Mean Platelet Volume 12.1 fL (9.4-12.4); Monocytes Absolute Auto 0.5 X10*3/uL (0.1-1.2); Monocytes Percent Auto 8.4 % (2-11); Neutrophils Absolute Auto 4.6 X10*3/uL (2.0-8.3); Neutrophils Percent Auto 71.7 % (45-73); Platelet Count 313 X10*3/uL (160-400); Red Blood Count 3.51 X10*6/uL (4.60-5.80); Red Cell Distribution Width 21.2 % (11.0-16.0); White Blood Count 6.4 X10*3/uL (4.8-10.8)
== END 2020-07-28 06:13 | disposition home or self-care (01) ==
LOC: HO.HSH1N 06:12
PROVIDERS: Visit Provider Internal Medicine Interventional Cardiology
DX: J44.9 Chronic obstructive pulmonary disease, unspecified (principal); I10 Essential (primary) hypertension; C22.9 Malignant neoplasm of liver, not specified as primary or secondary
CPT/HCPCS: 36415; 85025

== ENCOUNTER 2020-08-11 06:55 | Outpatient (REF) | payer OTHER, SELFPAY ==
[2020-08-11 08:37] LABS: Hemoglobin 10.3 g/dl (14.0-18.0); Mean Corpuscular HGB Conc 32.2 g/dl (31.0-36.0); Mean Corpuscular Hemoglobin 27.8 pg (27.0-33.0); Mean Corpuscular Volume 86.3 fL (80-98); Mean Platelet Volume 11.3 fL (9.4-12.4); NRBC Pct Auto 0.6 /100WBC (0.0-0.2); Platelet Count 358 X10*3/uL (160-400); Red Blood Count 3.71 X10*6/uL (4.60-5.80); Red Cell Distribution Width 23.2 % (11.0-16.0); White Blood Count 6.9 X10*3/uL (4.8-10.8)
== END 2020-08-11 06:56 | disposition home or self-care (01) ==
LOC: HO.HSH1N 06:55
PROVIDERS: Visit Provider Internal Medicine Interventional Cardiology
DX: C22.9 Malignant neoplasm of liver, not specified as primary or secondary (principal)
CPT/HCPCS: 36415; 85027

== ENCOUNTER 2020-08-25 07:32 | Outpatient (REF) | payer OTHER, SELFPAY ==
[2020-08-25 08:12] LABS: Hematocrit 32.3 % (42-52); Hemoglobin 10.6 g/dl (14.0-18.0); Mean Corpuscular HGB Conc 32.8 g/dl (31.0-36.0); Mean Corpuscular Hemoglobin 27.4 pg (27.0-33.0); Mean Corpuscular Volume 83.5 fL (80-98); Mean Platelet Volume 10.7 fL (9.4-12.4); NRBC Pct Auto 0.5 /100WBC (0.0-0.2); Platelet Count 392 X10*3/uL (160-400); Red Blood Count 3.87 X10*6/uL (4.60-5.80); Red Cell Distribution Width 24.3 % (11.0-16.0); White Blood Count 8.1 X10*3/uL (4.8-10.8)
== END 2020-08-25 07:33 | disposition home or self-care (01) ==
LOC: HO.HSH1N 07:32
PROVIDERS: Visit Provider Internal Medicine Interventional Cardiology
DX: C22.9 Malignant neoplasm of liver, not specified as primary or secondary (principal)
CPT/HCPCS: 36415; 85027

== ENCOUNTER → 2023-12-04 14:54 | Outpatient (RCR) | payer OTHER, SELFPAY ==
[2020-01-15 12:55] LABS: MANUAL DIFF FLAG NO
[2020-01-15 13:22] VITALS: BP 136/85; PULSE 76; RESP 20; TEMP 36.6; O2SAT 97; BMI 28.0
[2020-01-15 13:24] LABS: Basophils Percent Auto 0.2 % (0-2); Eosinophils Absolute Auto 0.1 X10*3/uL (0.0-0.4); Eosinophils Percent Auto 1.1 % (0-4); Hematocrit 41.4 % (42-52); Hemoglobin 13.6 g/dl (14.0-18.0); Imm Gran Abs Auto 0.02 X10*3/uL (0.00-0.03); Imm Gran Pct Auto 0.4 % (0.0-0.4); Lymphocytes Absolute Auto 1.9 X10*3/uL (1.2-4.9); Lymphocytes Percent Auto 34.2 % (20-40); Mean Corpuscular HGB Conc 32.9 g/dl (31.0-36.0); Mean Corpuscular Hemoglobin 35.3 pg (27.0-33.0); Mean Corpuscular Volume 107.5 fL (80-98); Mean Platelet Volume 9.3 fL (9.4-12.4); Monocytes Absolute Auto 0.2 X10*3/uL (0.1-1.2); Monocytes Percent Auto 3.7 % (2-11); Neutrophils Absolute Auto 3.4 X10*3/uL (2.0-8.3); Neutrophils Percent Auto 60.4 % (45-73); Platelet Count 251 X10*3/uL (160-400); Red Blood Count 3.85 X10*6/uL (4.60-5.80); Red Cell Distribution Width 14.9 % (11.0-16.0); White Blood Count 5.7 X10*3/uL (4.8-10.8)
[2020-01-15 13:57] LABS: Alanine Aminotransferase 44 U/L (0-40); Albumin Level 2.2 g/dL (3.5-5.0); Alkaline Phosphatase 71 U/L (39-117); Anion Gap 11 (12-20); Aspartate Amino Transferase 48 U/L (5-37); Bilirubin Total 0.2 mg/dL (0.0-1.0); Blood Urea Nitrogen 22 mg/dL (9-16); Calcium 7.2 mg/dL (8.4-10.2); Carbon Dioxide 24 mmol/L (22-29); Chloride 111 mmol/L (96-108); Creatinine Clr Calc Pharmacy 60.1; Estimated Glomerular Filt Rate > 60; Glucose Random 137 mg/dL (60-115); Potassium 3.8 mmol/l (3.3-5.1); Sodium 142 mmol/L (135-145); Total Protein 5.1 g/dL (6.5-8.0)
--- NOTE | 2020-01-15 16:33 | P.PNHO_ITS ---
Medical Summary - Medical Summary Chief complaint: follow-up for HCC. Medical Summary: DIAGNOSIS: HCC. CURRENT THERAPY: Started on Lenvatinib, February 01 2018. AFP is declining,01/22: 11, 10/20: 51, down From 323.9 in July, from 13174.2 in January of 2018. Had disease progression. Now on Cabozantinib, Since September. Interval History Interval history: this is a pleasant 69-year-old gentleman who iron distend has not been doing too well. over the past couple of weeks he has been noted to have a decline in his appetite. he is not eating that much. he likes his yogurt. He appears to be rather lethargic. he has had increasing edema over his feet. He is wheel chair bound, he can only transfer but not walk without assistance. his ammonia level was elevated. he has had some diarrhea here in there he was on MOM daily that has been discontinued. He was evaluated by Dr. Hu. he increased his Lasix dose. he put on Donta stockings. these are tight on him so he tries to pick at them. he also discontinued his morphine and decrease the dose of Ativan. Review of Systems - Constitutional Reports body ache(s), Reports daytime sleepiness - Eyes Denies change in vision - ENT Reports system reviewed and no additional complaints, except as documented - Cardiovascular Reports lightheadedness, Denies chest pain - Respiratory Denies cough - Gastrointestinal Reports abdominal pain, Reports bloating, Reports change in bowel habits, Reports diarrhea - Musculoskeletal Reports body aches - Integumentary/Breasts Skin/Breast: Denies bleeding lesions - Psychiatric Reports change in appetite, Reports difficulty concentrating, Reports memory loss - Endocrine Denies cold intolerance - Hematologic/Lymphatic Reports easy bleeding PMFSH Medical History: Medical History (Last Updated 01/15/20 @ 13:19 by Tegan Holman RN) Chronic hepatitis HCC (hepatocellular carcinoma) Home Medications and Allergies Home Medications Medication Instructions Recorded Confirmed Type albuterol sulfate 2.5 mg INHALATION Q4-6H PRN 01/15/20 01/15/20 History amlodipine 10 mg PO DAILY 01/15/20 01/15/20 History cabozantinib 60 mg PO DAILY 01/15/20 01/15/20 History calcium polycarbophil 1,250 mg PO DAILY 01/15/20 01/15/20 History clonidine HCl 0.2 mg PO TID 01/15/20 01/15/20 History docusate sodium 100 mg PO BID 01/15/20 01/15/20 History escitalopram oxalate 10 mg PO DAILY 01/15/20 01/15/20 History furosemide 40 mg PO QAM 01/15/20 01/15/20 History gabapentin [Neurontin] 100 mg PO TID 01/15/20 01/15/20 History hydralazine 10 mg PO BID 01/15/20 01/15/20 History isosorbide dinitrate [Isordil] 10 mg PO BID 01/15/20 01/15/20 History labetalol 100 mg PO BID 01/15/20 01/15/20 History loperamide 2 mg PO Q4H PRN 01/15/20 01/15/20 History lorazepam 1 mg PO BID PRN 01/15/20 01/15/20 History megestrol [Megace] 400 mg PO DAILY 01/15/20 01/15/20 History omeprazole 20 mg PO DAILY 01/15/20 01/15/20 History trazodone 25 mg PO BEDTIME PRN 01/15/20 01/15/20 History Allergies Allergy/AdvReac Type Severity Reaction Status Date / Time acetaminophen [From TYLENOL] Allergy Unknown RASH Unverified 12/24/19 14:38 aspirin [ASA] Allergy Unknown HIVES Unverified 12/24/19 14:38 metoprolol [From TOPROL XL] Allergy Unknown RASH Unverified 12/24/19 14:38 Aspirin, Tylenol Allergy Unknown Uncoded 04/16/19 00:00 Exam Vital signs: Vital Signs Temp 97.9 F 01/15/20 13:22 Pulse 76 01/15/20 13:22 Resp 20 01/15/20 13:22 BP 136/85 01/15/20 13:22 Pulse Ox 97 01/15/20 13:22 Intake & Output 01/14/20 01/15/20 01/15/20 18:59 06:59 18:59 Other: Weight 69.485 kg Weight 69.485 kg Body Mass Index 28.0 - Constitutional Present: no acute distress - Routine Neck Exam Present: normal inspection - Routine Respiratory Exam Present: CTAB - Routine Cardiovascular Exam Cardiovascular: Present: RRR, S1, S2 - Routine Abdominal Exam Present: soft, tenderness. Absent: nontender - Routine Neurological Exam Present: alert, oriented X3. Absent: asterixis - Detailed Neurological Exam: Coma Scale Eye Opening: Spontaneous (4) - Routine Psychiatric Exam Present: normal affect Data - Labs CBC & Chem 7: 01/15/20 12:54 01/15/20 12:54 Labs: Laboratory Results - last 24 hr 01/15/20 01/15/20 12:54 12:54 WBC 5.7 RBC 3.85 L Hgb 13.6 L Hct 41.4 L MCV 107.5 H MCH 35.3 H MCHC 32.9 RDW 14.9 Plt Count 251 MPV 9.3 L Immature Gran % (Auto) 0.4 Neut % (Auto) 60.4 Lymph % (Auto) 34.2 [place] % (Auto) 3.7 Eos % (Auto) 1.1 Baso % (Auto) 0.2 Lymph # (Auto) 1.9 [place] # (Auto) 0.2 Eos # (Auto) 0.1 Baso # (Auto) 0.0 Abs Immat Gran (auto) 0.02 Absolute Neuts (auto) 3.4 Absolute Nucleated RBC 0.000 Nucleated RBC % (auto) 0.0 Sodium 142 Potassium 3.8 Chloride 111 H Carbon Dioxide 24 Anion Gap 11 L BUN 22 H Creatinine 1.02 Estim Creat Clear Calc 60.1 Estimated GFR > 60 Random Glucose 137 H Calcium 7.2 L Total Bilirubin 0.2 AST 48 H ALT 44 H Alkaline Phosphatase 71 Total Protein 5.1 L Albumin 2.2 L Progress Note: A/P (1) HCC (hepatocellular carcinoma) Status: Acute Assessment and plan: This is an Unfortunate 69 old gentleman, with history of Chronic Hepatitis C, complicated by HCC, treated with resection 12/15, who presented with recurrent multifocal HCC. ? of PV involvement with tumour versus thrombus on CT scan. However, ultrasound of the abdomen ruled out portal vein thrombosis. Labs are not suggestive of cirrhosis (normal platelet count, INR and albumin level). Hepatitis serologes positive for hep C, history of hep A. HIV negative. He had Recurrent HCC, post treatment. Alpha-fetoprotein: Jan 11.4. He had been on Sorafanib, for 2-3 years, in the past. I offered him Lenvatinib. His dose came to 12 milligram daily, for his weight. He started it on February 01, 2018. Initially, it was very encouraging that he was tolerating it well and his alpha- fetoprotein has been declining. It was very encouraging that he was tolerating it well and his alpha-fetoprotein has been declining. He had a CT scan of the abdomen December 02 which revealed: 1. Postsurgical right hepatectomy. 2. The multiple lesions of the liver are better demonstrated on prior ultrasound and postcontrast CAT scan studies and on this noncontrast exam. 3. Linear metallic foreign body that is likely a surgical clip associated with the wall of the cardia the stomach. Correlate with history. 4. Diverticulosis of colon. No acute abnormality of the bowel. 5. Status post Cholecystectomy.. Chronic dilatation of the CBD. 6. Stable bilateral renal cysts. No hydronephrosis or calculus of either kidney. However, He had a CT Scan of the abdomen on April 09: 1. There is increase in size and number of hepatic lesions, as detailed above. No lymphadenopathy or free fluid is seen. 2. There are postoperative changes consistent with a prior right hepatectomy. My concern was about disease progression. He had a biopsy, of one of the liver lesions, on April 24 by IR. Results: Liver, lesion, biopsy: HEPATOCELLULAR CARCINOMA, MODERATELY-DIFFERENTIATED. Per report, immunohistochemistry for PD-L1 (performed upon clinical request) is NEGATIVE. He has been doing reasonably well. He has been on Cabozantinib, For around 6 months. His appetite had declined despite the Megace. He has had some memory decline and intermittent confusion. Concern is if the medication has anything to do with it. He has been getting labs done every week at [facility]. His labs are actually quite reasonable. [facility] Hopefully that will help PLAN: I will check his tumor marker: AFP, to gauge his response. Will check a CT scan of the abdomen for further restaging, as well. Will then decide if the present treatment is working. If it is, he will be continued on the targeted agent. If not, will look for alternatives. He will return in 3 months for a followup. Thank you, CC: Dr. Vika Vergara. Dr. Mayank Mcdaniel. [facility] Code Status FULL CODE Copies To: MAYANK MCDANIEL MD; VIKA VERGARA MD - Time Spent With Patient Total time spent is greater than 50% in coordination of care (as documented) at patient's floor/unit and/or counseling patient: 25 - 35 minutes
[2020-01-18 14:17] LABS: Alpha Fetoprotein 18.9 ng/mL (<6.1)
[2020-02-15 13:18] VITALS: BMI 29.0
[2020-02-15 13:19] VITALS: BP 117/69; PULSE 66; RESP 18; TEMP 36.8; O2SAT 94
[2020-02-15 13:33] LABS: MANUAL DIFF FLAG NO
[2020-02-15 13:37] LABS: Basophils Percent Auto 0.3 % (0-2); Eosinophils Absolute Auto 0.1 X10*3/uL (0.0-0.4); Eosinophils Percent Auto 0.9 % (0-4); Hematocrit 27.4 % (42-52); Hemoglobin 8.9 g/dl (14.0-18.0); Imm Gran Abs Auto 0.08 X10*3/uL (0.00-0.03); Imm Gran Pct Auto 1.4 % (0.0-0.4); Lymphocytes Absolute Auto 1.5 X10*3/uL (1.2-4.9); Lymphocytes Percent Auto 26.6 % (20-40); Mean Corpuscular HGB Conc 32.5 g/dl (31.0-36.0); Mean Corpuscular Volume 104.6 fL (80-98); Mean Platelet Volume 9.8 fL (9.4-12.4); Monocytes Absolute Auto 0.8 X10*3/uL (0.1-1.2); Monocytes Percent Auto 13.5 % (2-11); Neutrophils Absolute Auto 3.3 X10*3/uL (2.0-8.3); Neutrophils Percent Auto 57.3 % (45-73); Platelet Count 299 X10*3/uL (160-400); Red Blood Count 2.62 X10*6/uL (4.60-5.80); Red Cell Distribution Width 15.4 % (11.0-16.0); White Blood Count 5.8 X10*3/uL (4.8-10.8)
[2020-02-15 14:08] LABS: Alanine Aminotransferase 28 U/L (0-40); Albumin Level 2.2 g/dL (3.5-5.0); Alkaline Phosphatase 162 U/L (39-117); Anion Gap 13 (12-20); Aspartate Amino Transferase 29 U/L (5-37); Bilirubin Total 0.3 mg/dL (0.0-1.0); Blood Urea Nitrogen 25 mg/dL (9-16); Calcium 7.6 mg/dL (8.4-10.2); Carbon Dioxide 23 mmol/L (22-29); Chloride 107 mmol/L (96-108); Creatinine Clr Calc Pharmacy 62.3; Estimated Glomerular Filt Rate > 60; Glucose Random 101 mg/dL (60-115); Potassium 4.9 mmol/l (3.3-5.1); Sodium 138 mmol/L (135-145); Total Protein 5.1 g/dL (6.5-8.0)
--- NOTE | 2020-02-15 16:30 | PM.HEMONCPN ---
Medical Summary - Medical Summary Chief complaint: Follow-up for: HCC. Medical Summary: DIAGNOSIS: HCC. CURRENT THERAPY: Started on Lenvatinib, February 01 2018. AFP is declining,01/22: 11, 10/20: 51, down From 323.9 in July, from 63991.2 in January of 2018. Had disease progression. Now on Cabozantinib, Since September. Interval History Interval history: This is a pleasant 69-year-old gentleman who recently has not been doing too well. He has been noted to have increasing edema over his feet. Even his hands and arms have been swollen. He has been noted to have bruising on the upper and lower extremities. Over the past few weeks he has been noted to have a decline in his appetite. He is not eating that much. He likes his yogurt. He appears to be rather lethargic. He is wheel chair bound, he can only transfer but not walk without assistance. His ammonia level was elevated. He has had some diarrhea here in there he was on MOM daily that has been discontinued. He was evaluated by Dr. Hu. He increased his Lasix dose. He put on Donta stockings. These are tight on him so he tries to pick at them. He also discontinued his morphine and decrease the dose of Ativan. He appears to be in good spirits. Rest of the review of systems is unremarkable. Review of Systems - Constitutional Reports no additional constitutional complaints, Reports anorexia, Reports fatigue, Denies fever(s), Reports lack of energy, Reports malaise, Reports poor appetite - Eyes Reports no additional eye complaints - ENT Reports no additional ear, nose, mouth, and throat complaints - Cardiovascular Reports no additional cardiovascular complaints - Respiratory Reports no additional respiratory complaints - Gastrointestinal Reports no additional gastrointestinal complaints, Reports abdominal pain, Reports feeling full early, Denies vomiting - Genitourinary Genitourinary: Reports no additional male genitourinary complaints - Musculoskeletal Reports no additional musculoskeletal complaints - Integumentary/Breasts Skin/Breast: Reports no additional skin complaints - Neurologic Reports no additional neurologic complaints, Reports memory loss - Psychiatric Reports no additional psychiatric complaints, Reports confusion, Reports depression - Endocrine Reports no additional endocrine complaints - Hematologic/Lymphatic Reports no additional hematologic/lymphatic complaints - Allergic/Immunologic Reports no additional allergic/immunologic complaints [facility] Medical History: Medical History (Last Updated 11/09/20 @ 09:58 by Alysha Begum) Alcohol abuse Alcoholic peripheral neuropathy Anxiety C. difficile diarrhea Chronic hepatitis Chronic pain syndrome COPD (chronic obstructive pulmonary disease) Depression HCC (hepatocellular carcinoma) Hepatitis C HTN (hypertension) Liver cancer Polysubstance abuse Patient : No Family History: Family History (Last Updated 02/15/20 @ 10:00 by Alysha Begum) Brother Hepatitis C AIDS Mother Liver cancer Sister Cancer Home Medications and Allergies Home Medications Medication Instructions Recorded Confirmed Type albuterol sulfate 2.5 mg INHALATION Q4-6H PRN 01/15/20 01/15/20 History amlodipine 10 mg PO DAILY 01/15/20 01/15/20 History cabozantinib 60 mg PO DAILY 01/15/20 01/15/20 History calcium polycarbophil 1,250 mg PO DAILY 01/15/20 01/15/20 History clonidine HCl 0.2 mg PO TID 01/15/20 01/15/20 History docusate sodium 100 mg PO BID 01/15/20 01/15/20 History escitalopram oxalate 10 mg PO DAILY 01/15/20 01/15/20 History furosemide 40 mg PO QAM 01/15/20 01/15/20 History gabapentin [Neurontin] 100 mg PO TID 01/15/20 01/15/20 History hydralazine 10 mg PO BID 01/15/20 01/15/20 History isosorbide dinitrate [Isordil] 10 mg PO BID 01/15/20 01/15/20 History labetalol 100 mg PO BID 01/15/20 01/15/20 History loperamide 2 mg PO Q4H PRN 01/15/20 01/15/20 History lorazepam 1 mg PO BID PRN 01/15/20 01/15/20 History megestrol [Megace] 400 mg PO DAILY 01/15/20 01/15/20 History omeprazole 20 mg PO DAILY 01/15/20 01/15/20 History trazodone 25 mg PO BEDTIME PRN 01/15/20 01/15/20 History Allergies Allergy/AdvReac Type Severity Reaction Status Date / Time acetaminophen [From TYLENOL] Allergy Unknown RASH Unverified 12/24/19 14:38 aspirin [ASA] Allergy Unknown HIVES Unverified 12/24/19 14:38 metoprolol [From TOPROL XL] Allergy Unknown RASH Unverified 12/24/19 14:38 Aspirin, Tylenol Allergy Unknown Uncoded 04/16/19 00:00 Exam Vital signs: Vital Signs Temp 98.2 F 02/15/20 13:19 Pulse 66 02/15/20 13:19 Resp 18 02/15/20 13:19 BP 117/69 02/15/20 13:19 Pulse Ox 94 02/15/20 13:19 Intake & Output 02/14/20 02/15/20 02/15/20 18:59 06:59 18:59 Other: Weight 71.9 kg Weight 71.9 kg Body Mass Index 29.0 - Constitutional Present: no acute distress - Routine HEENT Exam Head: Present: normal inspection ENT: Present: mucous membranes moist - Routine Neck Exam Present: full ROM, normal inspection - Routine Respiratory Exam Present: CTAB - Routine Cardiovascular Exam Cardiovascular: Present: RRR, S1, S2 - Routine Abdominal Exam Present: soft, tenderness. Absent: nontender - Routine Rectal Exam Patient deferred: digital exam - Routine Extremities Exam Present: pedal edema, tenderness, nontender - Routine Skin Exam Present: intact, ecchymosis - Routine Neurological Exam Present: alert, oriented X3. Absent: asterixis - Detailed Neurological Exam: Coma Scale Eye Opening: Spontaneous (4) Motor Response: Obeys commands (6) - Routine Psychiatric Exam Present: normal affect Data - Labs CBC & Chem 7: 02/15/20 13:20 02/15/20 13:20 Labs: Laboratory Results - last 24 hr 02/15/20 02/15/20 13:20 13:20 WBC 5.8 RBC 2.62 L Hgb 8.9 L Hct 27.4 L MCV 104.6 H MCH 34.0 H MCHC 32.5 RDW 15.4 Plt Count 299 MPV 9.8 Immature Gran % (Auto) 1.4 H Neut % (Auto) 57.3 Lymph % (Auto) 26.6 [place] % (Auto) 13.5 H Eos % (Auto) 0.9 Baso % (Auto) 0.3 Lymph # (Auto) 1.5 [place] # (Auto) 0.8 Eos # (Auto) 0.1 Baso # (Auto) 0.0 Abs Immat Gran (auto) 0.08 H Absolute Neuts (auto) 3.3 Absolute Nucleated RBC 0.000 Nucleated RBC % (auto) 0.0 Sodium 138 Potassium 4.9 Chloride 107 Carbon Dioxide 23 Anion Gap 13 BUN 25 H Creatinine 1.00 Estim Creat Clear Calc 62.3 Estimated GFR > 60 Random Glucose 101 Calcium 7.6 L D Total Bilirubin 0.3 AST 29 ALT 28 Alkaline Phosphatase 162 H D Total Protein 5.1 L Albumin 2.2 L Progress Note: A/P (1) HCC (hepatocellular carcinoma) Status: Acute Assessment and plan: This is an Unfortunate 69 old gentleman, with history of Chronic Hepatitis C, complicated by HCC, treated with resection 12/15, who presented with recurrent multifocal HCC. ? of PV involvement with tumour versus thrombus on CT scan. However, ultrasound of the abdomen ruled out portal vein thrombosis. Labs are not suggestive of cirrhosis (normal platelet count, INR and albumin level). Hepatitis serologes positive for hep C, history of hep A. HIV negative. He had Recurrent HCC, post treatment. Alpha-fetoprotein: Jan 11.4. He had been on Sorafanib, for 2-3 years, in the past. I offered him Lenvatinib. His dose came to 12 milligram daily, for his weight. He started it on February 01, 2018. Initially, it was very encouraging that he was tolerating it well and his alpha-fetoprotein has been declining. It was very encouraging that he was tolerating it well and his alpha-fetoprotein has been declining. He had a CT scan of the abdomen December 02 which revealed: 1. Postsurgical right hepatectomy. 2. The multiple lesions of the liver are better demonstrated on prior ultrasound and postcontrast CAT scan studies and on this noncontrast exam. 3. Linear metallic foreign body that is likely a surgical clip associated with the wall of the cardia the stomach. Correlate with history. 4. Diverticulosis of colon. No acute abnormality of the bowel. 5. Status post Cholecystectomy.. Chronic dilatation of the CBD. 6. Stable bilateral renal cysts. No hydronephrosis or calculus of either kidney. However, He had a CT Scan of the abdomen on April 09: 1. There is increase in size and number of hepatic lesions, as detailed above. No lymphadenopathy or free fluid is seen. 2. There are postoperative changes consistent with a prior right hepatectomy. My concern was about disease progression. He had a biopsy, of one of the liver lesions, on April 24 by IR. Results: Liver, lesion, biopsy: HEPATOCELLULAR CARCINOMA, MODERATELY-DIFFERENTIATED. Per report, immunohistochemistry for PD-L1 (performed upon clinical request) is NEGATIVE. He has been doing reasonably well. He has been on Cabozantinib, for > 6 months. His appetite had declined despite the Megace. He has had some memory decline and intermittent confusion. Concern is if the medication has anything to do with it. He has been getting labs done every week at [facility]. His labs are actually quite reasonable. His medications [facility] [place]. Hopefully that will help. He has been noted to have lower extremity and upper extremity edema and bruising. I checked his tumor marker: AFP, to gauge his response. This went up to 18.9. In view of his recent effects of extremity edema, and excessive bruising, I have elected to hold the the cabozantinib for a couple of weeks. PLAN: Will check a CT scan of the abdomen for further restaging. The result filled clinch the issue if the cabozantinib is working. If it is, he will be continued on the targeted agent. If not, will look for alternatives. He will return in 3 months for a followup. Thank you, CC: Dr. Sheila Ty. Dr[facility]. [facility] Code Status FULL CODE - Time Spent With Patient Total time spent is greater than 50% in coordination of care (as documented) at patient's floor/unit and/or counseling patient: 25 - 35 minutes
[2020-02-16 12:41] LABS: Alpha Fetoprotein 24.8 ng/mL (<6.1)
--- NOTE | 2020-02-26 10:47 | HO.HEMONCTE1 ---
[facility] Tele[facility] - Telehealth Location of Provider rendering services: [facility] OFFICE. Patient Identification confirmed using: Name, : Yes Patient verbally consented to billing insurance company: Yes Patient informed of any privacy concerns related to visit: Yes Medical Summary - Medical Summary Date of Service: 03/04/20 Medical Summary: DIAGNOSIS: HCC. CURRENT THERAPY: Started on Lenvatinib, February 01 2018. AFP is declining,01/22: 11, 10/20: 51, down From 323.9 in July, from 82162.2 in January of 2018. Had disease progression. Now on Cabozantinib, Since September. Interval History Interval history: This is a pleasant 69-year-old gentleman with whom a tele visit was held. He was seen a couple of weeks ago when he was noted to have increasing edema over his feet and hands and arms. He had been noted to have bruising on the upper and lower extremities. He had a decline in his appetite. He appeared to be rather lethargic. He is wheel chair bound, he can only transfer but not walk without assistance. His ammonia level was elevated. He has had some diarrhea here in there he was on MOM daily that has been discontinued. He was evaluated by Dr. Hu. He increased his Lasix dose. He put on Donta stockings. He increase the Aldactone. He added folic acid and iron to his regimen. He also discontinued his morphine and decrease the dose of Ativan. The nurseDebra mentioned that he is feeling a little better. The swelling has improved. he is eating and is more alert. However he has been put under lock down since his roommate had a fever. His COVID test is still pending. Last week was negative. He is being tested every 3 week. He appears to be in good spirits. Rest of the review of systems is unremarkable. Review of Systems - Constitutional Reports system reviewed and no additional complaints, except as documented, Reports fatigue, Denies fever(s) - Eyes Reports system reviewed and no additional complaints, except as documented - ENT Reports system reviewed and no additional complaints, except as documented - Cardiovascular Reports system reviewed and no additional complaints, except as documented - Respiratory Reports no additional respiratory complaints - Gastrointestinal Reports system reviewed and no additional complaints, except as documented - Genitourinary Genitourinary: Reports no additional male genitourinary complaints - Musculoskeletal Reports system reviewed and no additional complaints, except as documented - Neurologic Reports system reviewed and no additional complaints, except as documented, Reports confusion, Reports memory loss Home Medications and Allergies Home Medications Medication Instructions Recorded Confirmed Type albuterol sulfate 2.5 mg INHALATION Q4-6H PRN 01/15/20 01/15/20 History amlodipine 10 mg PO DAILY 01/15/20 01/15/20 History cabozantinib 60 mg PO DAILY 01/15/20 01/15/20 History calcium polycarbophil 1,250 mg PO DAILY 01/15/20 01/15/20 History docusate sodium 100 mg PO BID 01/15/20 01/15/20 History escitalopram oxalate 10 mg PO DAILY 01/15/20 01/15/20 History furosemide 60 mg PO QAM 01/15/20 02/26/20 History gabapentin [Neurontin] 100 mg PO TID 01/15/20 01/15/20 History hydralazine 10 mg PO BID 01/15/20 01/15/20 History isosorbide dinitrate [Isordil] 10 mg PO BID 01/15/20 01/15/20 History labetalol 100 mg PO BID 01/15/20 01/15/20 History loperamide 2 mg PO Q4H PRN 01/15/20 01/15/20 History lorazepam 1 mg PO BID PRN 01/15/20 01/15/20 History megestrol [Megace] 400 mg PO DAILY 01/15/20 01/15/20 History omeprazole 20 mg PO DAILY 01/15/20 01/15/20 History trazodone 25 mg PO BEDTIME PRN 01/15/20 01/15/20 History amlodipine 10 mg PO DAILY 02/26/20 02/26/20 History cabozantinib 60 mg PO DAILY 02/26/20 02/26/20 History cholecalciferol (vitamin D3) 50 mcg PO DAILY 02/26/20 02/26/20 History clonidine HCl 0.2 mg PO TID 02/26/20 02/26/20 History docusate sodium 100 mg PO BID 02/26/20 02/26/20 History escitalopram oxalate 10 mg PO DAILY 02/26/20 02/26/20 History ferrous sulfate 325 mg PO BID 02/26/20 02/26/20 History folic acid 1 mg PO DAILY 02/26/20 02/26/20 History ipratropium-albuterol [DuoNeb] 3 ml INHALATION Q4-6H PRN 02/26/20 02/26/20 History levothyroxine 100 mcg PO DAILY 02/26/20 02/26/20 History megestrol 400 mg PO BID 02/26/20 02/26/20 History omeprazole 20 mg PO DAILY 02/26/20 02/26/20 History Allergies Allergy/AdvReac Type Severity Reaction Status Date / Time acetaminophen [From TYLENOL] Allergy Unknown RASH Verified 02/26/20 14:23 aspirin [ASA] Allergy Unknown HIVES Verified 02/26/20 14:23 metoprolol [From TOPROL XL] Allergy Unknown RASH Verified 02/26/20 14:23 Exam Vital signs: Vital Signs Temp 98.2 F 02/15/20 13:19 Pulse 66 02/15/20 13:19 Resp 18 02/15/20 13:19 BP 117/69 02/15/20 13:19 Pulse Ox 94 02/15/20 13:19 Intake & Output 02/14/20 02/15/20 02/15/20 18:59 06:59 18:59 Other: Weight 71.9 kg Weight 71.9 kg Body Mass Index 29.0 - Constitutional Present: no acute distress - Routine HEENT Exam Head: Present: normal inspection - Routine Neck Exam Present: full ROM, normal inspection - Routine Respiratory Exam Present: CTAB - Routine Cardiovascular Exam Cardiovascular: Present: RRR, S1, S2 - Routine Abdominal Exam Present: soft, tenderness. Absent: nontender - Routine Extremities Exam Present: pedal edema, tenderness, nontender - Routine Skin Exam Present: intact, ecchymosis - Routine Neurological Exam Present: alert, oriented X3. Absent: asterixis - Detailed Neurological Exam: Coma Scale Eye Opening: Spontaneous (4) - Routine Psychiatric Exam Present: normal affect Data - Labs CBC & Chem 7: 02/15/20 13:20 02/15/20 13:20 Labs: 01/15/20 12:54 AFP [Alpha Fetoprotein] Routine Complete Blood Count Auto Diff Routine Comprehensive Met. Panel Routine 02/15/20 13:20 Alpha Fetoprotein Routine CMP [Comprehensive Met. Panel] Routine Complete Blood Count Auto Diff Routine Laboratory Last Values WBC 5.8 X10*3/uL (4.8-10.8) 02/15/20 13:20 RBC 2.62 X10*6/uL (4.60-5.80) L 02/15/20 13:20 Hgb 8.9 g/dl (14.0-18.0) L 02/15/20 13:20 Hct 27.4 % (42-52) L 02/15/20 13:20 MCV 104.6 fL (80-98) H 02/15/20 13:20 MCH 34.0 pg (27.0-33.0) H 02/15/20 13:20 MCHC 32.5 g/dl (31.0-36.0) 02/15/20 13:20 RDW 15.4 % (11.0-16.0) 02/15/20 13:20 Plt Count 299 X10*3/uL (160-400) 02/15/20 13:20 MPV 9.8 fL (9.4-12.4) 02/15/20 13:20 Immature Gran % (Auto) 1.4 % (0.0-0.4) H 02/15/20 13:20 Neut % (Auto) 57.3 % (45-73) 02/15/20 13:20 Lymph % (Auto) 26.6 % (20-40) 02/15/20 13:20 [place] % (Auto) 13.5 % (2-11) H 02/15/20 13:20 Eos % (Auto) 0.9 % (0-4) 02/15/20 13:20 Baso % (Auto) 0.3 % (0-2) 02/15/20 13:20 Lymph # (Auto) 1.5 X10*3/uL (1.2-4.9) 02/15/20 13:20 [place] # (Auto) 0.8 X10*3/uL (0.1-1.2) 02/15/20 13:20 Eos # (Auto) 0.1 X10*3/uL (0.0-0.4) 02/15/20 13:20 Baso # (Auto) 0.0 X10*3/uL (0.0-0.2) 02/15/20 13:20 Abs Immat Gran (auto) 0.08 X10*3/uL (0.00-0.03) H 02/15/20 13:20 Absolute Neuts (auto) 3.3 X10*3/uL (2.0-8.3) 02/15/20 13:20 Absolute Nucleated RBC 0.000 X10*3/uL (0.0-0.012) 02/15/20 13:20 Nucleated RBC % (auto) 0.0 /100WBC (0.0-0.2) 02/15/20 13:20 Sodium 138 mmol/L (135-145) 02/15/20 13:20 Potassium 4.9 mmol/l (3.3-5.1) 02/15/20 13:20 Chloride 107 mmol/L (96-108) 02/15/20 13:20 Carbon Dioxide 23 mmol/L (22-29) 02/15/20 13:20 Anion Gap 13 (12-20) 02/15/20 13:20 BUN 25 mg/dL (9-16) H 02/15/20 13:20 Creatinine 1.00 mg/dL (0.5-1.4) 02/15/20 13:20 Estim Creat Clear Calc 62.3 02/15/20 13:20 Estimated GFR > 60 02/15/20 13:20 Random Glucose 101 mg/dL (60-115) 02/15/20 13:20 Calcium 7.6 mg/dL (8.4-10.2) L D 02/15/20 13:20 Total Bilirubin 0.3 mg/dL (0.0-1.0) 02/15/20 13:20 AST 29 U/L (5-37) 02/15/20 13:20 ALT 28 U/L (0-40) 02/15/20 13:20 Alkaline Phosphatase 162 U/L (39-117) H D 02/15/20 13:20 Total Protein 5.1 g/dL (6.5-8.0) L 02/15/20 13:20 Albumin 2.2 g/dL (3.5-5.0) L 02/15/20 13:20 Alpha Fetoprotein 24.8 ng/mL (<6.1) H 02/15/20 13:20 Progress Note: A/P (1) HCC (hepatocellular carcinoma) Status: Acute Assessment and plan: This is an Unfortunate 69 old gentleman, with history of Chronic Hepatitis C, complicated by HCC, treated with resection 12/15, who presented with recurrent multifocal HCC. ? of PV involvement with tumour versus thrombus on CT scan. However, ultrasound of the abdomen ruled out portal vein thrombosis. Labs are not suggestive of cirrhosis (normal platelet count, INR and albumin level). Hepatitis serologes positive for hep C, history of hep A. HIV negative. He had Recurrent HCC, post treatment. Alpha-fetoprotein: Jan 11.4. He had been on Sorafanib, for 2-3 years, in the past. I offered him Lenvatinib. His dose came to 12 milligram daily, for his weight. He started it on February 01, 2018. Initially, it was very encouraging that he was tolerating it well and his alpha-fetoprotein has been declining. It was very encouraging that he was tolerating it well and his alpha-fetoprotein has been declining. He had a CT scan of the abdomen December 02 which revealed: 1. Postsurgical right hepatectomy. 2. The multiple lesions of the liver are better demonstrated on prior ultrasound and postcontrast CAT scan studies and on this noncontrast exam. 3. Linear metallic foreign body that is likely a surgical clip associated with the wall of the cardia the stomach. Correlate with history. 4. Diverticulosis of colon. No acute abnormality of the bowel. 5. Status post Cholecystectomy.. Chronic dilatation of the CBD. 6. Stable bilateral renal cysts. No hydronephrosis or calculus of either kidney. However, He had a CT Scan of the abdomen on April 09: 1. There is increase in size and number of hepatic lesions, as detailed above. No lymphadenopathy or free fluid is seen. 2. There are postoperative changes consistent with a prior right hepatectomy. My concern was about disease progression. He had a biopsy, of one of the liver lesions, on April 24 by IR. Results: Liver, lesion, biopsy: HEPATOCELLULAR CARCINOMA, MODERATELY-DIFFERENTIATED. Per report, immunohistochemistry for PD-L1 (performed upon clinical request) is NEGATIVE. He has been doing reasonably well. He has been on Cabozantinib, for > 6 months. His appetite had declined despite the Megace. He has had some memory decline and intermittent confusion. Concern was if the medication has anything to do with it. He has been getting labs done every week at [facility]. His labs are actually quite reasonable. [facility] That does appear to have helped. In view of his recent effects of extremity edema, and excessive bruising, I had elected to hold the the cabozantinib for a couple of weeks. It appears that lower extremity and upper extremity edema and bruising, have improved. I checked his tumor marker: AFP, to gauge his response. This went up to 18.9. However, l checked a CT scan of the abdomen for further restaging. This revealed: Partial right hepatectomy. Decreased prominence of posttreatment change at segment 5 of the liver. Adjacent hypoattenuating lesions are either similar or decreased in size. Hypoattenuating heterogeneous ablation site at the caudate is similar to the prior study. There is a somewhat hypoattenuating lobulated area in segment 5 of the liver more inferiorly which is nonspecific. The overall size of this area is similar to prior. There is a peripheral area of significant hypoattenuation which has decreased in prominence from prior. PLAN: The result indicated cabozantinib is working. He will be continued on the targeted agent. He will return in 3 months for a followup. Will follow up on his labs, monthly. Thank you, CC: Dr. Sheila Ty. Dr. Stoney Mcdaniel. [facility] Code Status FULL CODE - Time Spent With Patient Total time spent is greater than 50% in coordination of care (as documented) at patient's floor/unit and/or counseling patient: 25 - 35 minutes
--- NOTE | 2020-03-28 10:34 | P.EN_ITS ---
Called today by Dr. Hu about patient having worsening rash. Patient initially had a rash on his legs, he was briefly admitted for unrelated cause at [facility]. At that time he was taken off cabozantinib. His rash seemed to resolve when he was off the medication. He has been restarted on the medication and for the last 1 week his rash has worsened. It now involves his legs as well as palms. Rash is described as bullous, he has been on topical steroids without improvement. I recommended that patient stop cabozantinib and start Medrol Dosepak for the rash. He was advised to come in for a visit and be re-evaluated. He will follow up with Dr. Chauhan.
[2020-04-04 09:50] VITALS: BP 121/61; PULSE 76; RESP 14; TEMP 36.7; O2SAT 98; BMI 31.9
--- NOTE | 2020-04-04 10:16 | MHC.HEMONCMA ---
Patient came in for an appt today, he is covered in a painful, blisterly rash all over his lower extremeties, also on his nose and inside his nose. [facility]. Pt states that he is doing good, no other complaints.
[2020-04-04 10:44] LABS: Eosinophils Absolute Auto 0.1 X10*3/uL (0.0-0.4); Eosinophils Percent Auto 0.8 % (0-4); Hemoglobin 10.2 g/dl (14.0-18.0); Imm Gran Abs Auto 0.03 X10*3/uL (0.00-0.03); Imm Gran Pct Auto 0.4 % (0.0-0.4); Lymphocytes Absolute Auto 0.7 X10*3/uL (1.2-4.9); Lymphocytes Percent Auto 8.6 % (20-40); MANUAL DIFF FLAG SCAN; Mean Corpuscular HGB Conc 30.9 g/dl (31.0-36.0); Mean Corpuscular Hemoglobin 30.5 pg (27.0-33.0); Mean Corpuscular Volume 98.8 fL (80-98); Mean Platelet Volume 9.6 fL (9.4-12.4); Monocytes Absolute Auto 0.6 X10*3/uL (0.1-1.2); Neutrophils Absolute Auto 6.7 X10*3/uL (2.0-8.3); Neutrophils Percent Auto 83.2 % (45-73); Platelet Count 279 X10*3/uL (160-400); Red Blood Count 3.34 X10*6/uL (4.60-5.80); Red Cell Distribution Width 18.6 % (11.0-16.0); SCAN SMEAR FLAG 1
[2020-04-04 11:14] LABS: Alanine Aminotransferase 50 U/L (0-40); Albumin Level 2.1 g/dL (3.5-5.0); Alkaline Phosphatase 92 U/L (39-117); Anion Gap 11 (12-20); Aspartate Amino Transferase 30 U/L (5-37); Bilirubin Total 0.4 mg/dL (0.0-1.0); Blood Urea Nitrogen 34 mg/dL (9-16); Calcium 7.1 mg/dL (8.4-10.2); Carbon Dioxide 24 mmol/L (22-29); Chloride 111 mmol/L (96-108); Creatinine Clr Calc Pharmacy 66.6; Estimated Glomerular Filt Rate > 60; Glucose Random 100 mg/dL (60-115); Potassium 4.5 mmol/l (3.3-5.1); Sodium 141 mmol/L (135-145)
[2020-04-04 11:23] LABS: SLIDE REVIEW VERIFIED
--- NOTE | 2020-04-04 13:29 | P.PNHO_ITS ---
Medical Summary - Medical Summary Date of Service: 04/04/20 Chief complaint: Follow-up for: HCC. Medical Summary: DIAGNOSIS: HCC. CURRENT THERAPY: Started on Lenvatinib, February 01 2018. AFP is declining,01/22: 11, 10/20: 51, down From 323.9 in July, from 95370.2 in January of 2018. Had disease progression. Now on Cabozantinib, Since September. Interval History Interval history: This is a pleasant 69-year-old gentleman, here for a follow-up visit. Over the past few weeks almost a month now he has noted a rash all over his body. This has progressed into blistering. It is quite painful. Dr. Hu felt he has bullous pemphigoid. He has elected to stop the Cabozantinib obn 03/28, and has started him on oral high-dose prednisone with a taper. The rash is still there although, the swelling has improved. He is eatingbetter. He is more alert. However he has been put under lock down since his roommate had a fever. His COVID test is still pending. Last week was negative. He is being tested every 3 week. He appears to be in good spirits. Rest of the review of systems is unremarkable. Previous history: He was seen a month ago when he was noted to have increasing edema over his fe et and hands and arms. He had been noted to have bruising on the upper and lower extremities. He had a decline in his appetite. He appeared to be rather lethargic. He is wheel chair bound, he can only transfer but not walk without assistance. His ammonia level was elevated. He has had some diarrhea here in there he was on MOM daily that has been discontinued. He was evaluated by Dr. Hu. He increased his Lasix dose. He put on Donta stockings. He increase the Aldactone. He added folic acid and iron to his regimen. He also discontinued his morphine and decrease the dose of Ativan. The nurseDebra mentioned that he is feeling a little better. Review of Systems - Neurologic Reports no additional neurologic complaints, Reports confusion, Reports memory loss [facility] Medical History: Medical History (Last Updated 02/23/20 @ 08:25 by Christine Womack PA-C) Alcohol abuse Alcoholic peripheral neuropathy Anxiety C. difficile diarrhea Chronic hepatitis Chronic pain syndrome COPD (chronic obstructive pulmonary disease) Depression Dysphagia HCC (hepatocellular carcinoma) Hepatitis C HTN (hypertension) Liver cancer Polysubstance abuse Family History: Family History (Last Updated 02/15/20 @ 10:00 by Alysha Begum) Brother Hepatitis C AIDS Mother Liver cancer Sister Cancer Surgical History: Surgical History (Last Updated 02/23/20 @ 08:21 by Janeth Fields MA) History of colonoscopy History of hernia repair Hx of endoscopy Home Medications and Allergies Home Medications Medication Instructions Recorded Confirmed Type albuterol sulfate 2.5 mg INHALATION Q4-6H PRN 01/15/20 01/15/20 History amlodipine 10 mg PO DAILY 01/15/20 01/15/20 History cabozantinib 60 mg PO DAILY 01/15/20 01/15/20 History calcium polycarbophil 1,250 mg PO DAILY 01/15/20 01/15/20 History docusate sodium 100 mg PO BID 01/15/20 01/15/20 History escitalopram oxalate 10 mg PO DAILY 01/15/20 01/15/20 History furosemide 60 mg PO QAM 01/15/20 02/26/20 History gabapentin [Neurontin] 100 mg PO TID 01/15/20 01/15/20 History hydralazine 10 mg PO BID 01/15/20 01/15/20 History isosorbide dinitrate [Isordil] 10 mg PO BID 01/15/20 01/15/20 History labetalol 100 mg PO BID 01/15/20 01/15/20 History loperamide 2 mg PO Q4H PRN 01/15/20 01/15/20 History lorazepam 1 mg PO BID PRN 01/15/20 01/15/20 History megestrol [Megace] 400 mg PO DAILY 01/15/20 01/15/20 History omeprazole 20 mg PO DAILY 01/15/20 01/15/20 History trazodone 25 mg PO BEDTIME PRN 01/15/20 01/15/20 History amlodipine 10 mg PO DAILY 02/26/20 02/26/20 History cabozantinib 60 mg PO DAILY 02/26/20 02/26/20 History cholecalciferol (vitamin D3) 50 mcg PO DAILY 02/26/20 02/26/20 History clonidine HCl 0.2 mg PO TID 02/26/20 02/26/20 History docusate sodium 100 mg PO BID 02/26/20 02/26/20 History escitalopram oxalate 10 mg PO DAILY 02/26/20 02/26/20 History ferrous sulfate 325 mg PO BID 02/26/20 02/26/20 History folic acid 1 mg PO DAILY 02/26/20 02/26/20 History ipratropium-albuterol [DuoNeb] 3 ml INHALATION Q4-6H PRN 02/26/20 02/26/20 History levothyroxine 100 mcg PO DAILY 02/26/20 02/26/20 History megestrol 400 mg PO BID 02/26/20 02/26/20 History omeprazole 20 mg PO DAILY 02/26/20 02/26/20 History Allergies Allergy/AdvReac Type Severity Reaction Status Date / Time acetaminophen [From TYLENOL] Allergy Unknown RASH Verified 02/26/20 14:23 aspirin [ASA] Allergy Unknown HIVES Verified 02/26/20 14:23 metoprolol [From TOPROL XL] Allergy Unknown RASH Verified 02/26/20 14:23 Exam Vital signs: Vital Signs Temp 98.1 F 04/04/20 09:50 Pulse 76 04/04/20 09:50 Resp 14 04/04/20 09:50 BP 121/61 04/04/20 09:50 Pulse Ox 98 04/04/20 09:50 Intake & Output 04/03/20 04/04/20 04/04/20 18:59 06:59 18:59 Other: Weight 79.2 kg Weight 79.2 kg Body Mass Index 31.9 - Constitutional Present: no acute distress - Routine HEENT Exam Head: Present: normal inspection - Routine Neck Exam Present: full ROM, normal inspection - Routine Respiratory Exam Present: CTAB - Routine Cardiovascular Exam Cardiovascular: Present: RRR, S1, S2 - Routine Abdominal Exam Present: soft, tenderness. Absent: nontender - Routine Extremities Exam Present: pedal edema, tenderness, nontender - Routine Skin Exam Present: intact, ecchymosis - Routine Neurological Exam Present: alert, oriented X3. Absent: asterixis - Detailed Neurological Exam: Coma Scale Eye Opening: Spontaneous (4) - Routine Psychiatric Exam Present: normal affect Data - Labs CBC & Chem 7: 04/04/20 10:12 04/04/20 10:12 Labs: 01/15/20 12:54 AFP [Alpha Fetoprotein] Routine Complete Blood Count Auto Diff Routine Comprehensive Met. Panel Routine 02/15/20 13:20 Alpha Fetoprotein Routine CMP [Comprehensive Met. Panel] Routine Complete Blood Count Auto Diff Routine 04/04/20 10:12 SLIDE REVIEW Routine 04/04/20 10:12 Complete Blood Count Auto Diff Routine Comprehensive Met. Panel Routine Laboratory Last Values WBC 8.0 X10*3/uL (4.8-10.8) 04/04/20 10:12 RBC 3.34 X10*6/uL (4.60-5.80) L 04/04/20 10:12 Hgb 10.2 g/dl (14.0-18.0) L 04/04/20 10:12 Hct 33.0 % (42-52) L 04/04/20 10:12 MCV 98.8 fL (80-98) H 04/04/20 10:12 MCH 30.5 pg (27.0-33.0) 04/04/20 10:12 MCHC 30.9 g/dl (31.0-36.0) L 04/04/20 10:12 RDW 18.6 % (11.0-16.0) H 04/04/20 10:12 Plt Count 279 X10*3/uL (160-400) 04/04/20 10:12 MPV 9.6 fL (9.4-12.4) 04/04/20 10:12 Immature Gran % (Auto) 0.4 % (0.0-0.4) 04/04/20 10:12 Neut % (Auto) 83.2 % (45-73) H 04/04/20 10:12 Lymph % (Auto) 8.6 % (20-40) L 04/04/20 10:12 [place] % (Auto) 7.0 % (2-11) 04/04/20 10:12 Eos % (Auto) 0.8 % (0-4) 04/04/20 10:12 Baso % (Auto) 0.0 % (0-2) 04/04/20 10:12 Lymph # (Auto) 0.7 X10*3/uL (1.2-4.9) L 04/04/20 10:12 [place] # (Auto) 0.6 X10*3/uL (0.1-1.2) 04/04/20 10:12 Eos # (Auto) 0.1 X10*3/uL (0.0-0.4) 04/04/20 10:12 Baso # (Auto) 0.0 X10*3/uL (0.0-0.2) 04/04/20 10:12 Abs Immat Gran (auto) 0.03 X10*3/uL (0.00-0.03) 04/04/20 10:12 Absolute Neuts (auto) 6.7 X10*3/uL (2.0-8.3) 04/04/20 10:12 Absolute Nucleated RBC 0.000 X10*3/uL (0.0-0.012) 04/04/20 10:12 Nucleated RBC % (auto) 0.0 /100WBC (0.0-0.2) 04/04/20 10:12 Smear Tech's Comments VERIFIED 04/04/20 10:12 Sodium 141 mmol/L (135-145) 04/04/20 10:12 Potassium 4.5 mmol/l (3.3-5.1) 04/04/20 10:12 Chloride 111 mmol/L (96-108) H 04/04/20 10:12 Carbon Dioxide 24 mmol/L (22-29) 04/04/20 10:12 Anion Gap 11 (12-20) L 04/04/20 10:12 BUN 34 mg/dL (9-16) H 04/04/20 10:12 Creatinine 0.98 mg/dL (0.5-1.4) 04/04/20 10:12 Estim Creat Clear Calc 66.6 04/04/20 10:12 Estimated GFR > 60 04/04/20 10:12 Random Glucose 100 mg/dL (60-115) 04/04/20 10:12 Calcium 7.1 mg/dL (8.4-10.2) L 04/04/20 10:12 Total Bilirubin 0.4 mg/dL (0.0-1.0) 04/04/20 10:12 AST 30 U/L (5-37) D 04/04/20 10:12 ALT 50 U/L (0-40) H 04/04/20 10:12 Alkaline Phosphatase 92 U/L (39-117) 04/04/20 10:12 Total Protein 5.0 g/dL (6.5-8.0) L 04/04/20 10:12 Albumin 2.1 g/dL (3.5-5.0) L 04/04/20 10:12 Alpha Fetoprotein 24.8 ng/mL (<6.1) H 02/15/20 13:20 Progress Note: A/P (1) HCC (hepatocellular carcinoma) Status: Acute Assessment and plan: This is an Unfortunate 69 old gentleman, with history of Chronic Hepatitis C, complicated by HCC, treated with resection 12/15, who presented with recurrent multifocal HCC. ? of PV involvement with tumour versus thrombus on CT scan. However, ultrasound of the abdomen ruled out portal vein thrombosis. Labs are not suggestive of cirrhosis (normal platelet count, INR and albumin level). Hepatitis serologes positive for hep C, history of hep A. HIV negative. He had Recurrent HCC, post treatment. Alpha-fetoprotein: Jan 11.4. He had been on Sorafanib, for 2-3 years, in the past. I offered him Lenvatinib. His dose came to 12 milligram daily, for his weight. He started it on February 01, 2018. Initially, it was very encouraging that he was tolerating it well and his alpha- fetoprotein has been declining. It was very encouraging that he was tolerating it well and his alpha-fetoprotein has been declining. He had a CT scan of the abdomen December 02 which revealed: 1. Postsurgical right hepatectomy. 2. The multiple lesions of the liver are better demonstrated on prior ultrasound and postcontrast CAT scan studies and on this noncontrast exam. 3. Linear metallic foreign body that is likely a surgical clip associated with the wall of the cardia the stomach. Correlate with history. 4. Diverticulosis of colon. No acute abnormality of the bowel. 5. Status post Cholecystectomy.. Chronic dilatation of the CBD. 6. Stable bilateral renal cysts. No hydronephrosis or calculus of either kidney. However, He had a CT Scan of the abdomen on April 09: 1. There is increase in size and number of hepatic lesions, as detailed above. No lymphadenopathy or free fluid is seen. 2. There are postoperative changes consistent with a prior right hepatectomy. My concern was about disease progression. He had a biopsy, of one of the liver lesions, on April 24 by IR. Results: Liver, lesion, biopsy: HEPATOCELLULAR CARCINOMA, MODERATELY-DIFFERENTIATED. Per report, immunohistochemistry for PD-L1 (performed upon clinical request) is NEGATIVE. He has been doing reasonably well. He has been on Cabozantinib, for > 6 months. His appetite had declined despite the Megace. He has had some memory decline and intermittent confusion. Concern was if the medication has anything to do with it. He has been getting labs done every week at [facility]. His labs are actually quite reasonable. His medications have [facility]. That does appear to have helped. In view of his recent effects of extremity edema, and excessive bruising, I had elected to hold the the cabozantinib for a couple of weeks. It appears that lower extremity and upper extremity edema and bruising, have improved. I checked his tumor marker: AFP, to gauge his response. This went up to 18.9. However, l checked a CT scan of the abdomen for further restaging. This revealed: Partial right hepatectomy. Decreased prominence of posttreatment change at segment 5 of the liver. Adjacent hypoattenuating lesions are either similar or decreased in size. Hypoattenuating heterogeneous ablation site at the caudate is similar to the prior study. There is a somewhat hypoattenuating lobulated area in segment 5 of the liver more inferiorly which is nonspecific. The overall size of this area is similar to prior. There is a peripheral area of significant hypoattenuation which has decreased in prominence from prior. The result indicated cabozantinib is working. PLAN: However, he has developed a skin rash, likely bullous pemphigoid. So the medication has been put on hold. He is on the steroids to clear it up. The plan is to follow him along. He will return in 1 month for a follow-up visit. Will then decide about switching to another targeted agent. Thank you, CC: Dr. Ty. Dr. Mcdaniel. Dr. Hu. - Time Spent With Patient Total time spent is greater than 50% in coordination of care (as documented) at patient's floor/unit and/or counseling patient: 25 - 35 minutes
[2020-04-06 11:07] LABS: Alpha Fetoprotein 50.5 ng/mL (<6.1)
[2020-05-31 11:11] LABS: MANUAL DIFF FLAG NO
[2020-05-31 11:18] VITALS: BP 137/75; PULSE 71; RESP 16; TEMP 36.4; O2SAT 95; BMI 31.6
--- NOTE | 2020-05-31 11:29 | PM.HEMONCPN ---
Medical Summary - Medical Summary Date of Service: 05/31/20 Chief complaint: Follow-up for: HCC. Medical Summary: DIAGNOSIS: HCC. CURRENT THERAPY: Started on Lenvatinib, February 01 2018. AFP is declining,01/22: 11, 10/20: 51, down From 323.9 in July, from 05678.2 in January of 2018. Had disease progression. Now on Cabozantinib, Since September. Interval History Interval history: This is a pleasant 69-year-old gentleman, here for a follow-up visit. Over the past few weeks, he had noted a rash all over his body. This progressed into blistering. It was quite painful. Dr. Hu felt it was bullous pemphigoid. He elected to stop the Cabozantinib on 03/28, and started him on oral high-dose prednisone with a taper. He is down to 30 mg a day. The rash has gradually improved. He just has a few scabbed over lesions left. He is more alert. He appears cushingoid. Denies any fever nor chills. No chest pain or trouble breathing. Denies abdominal pain nausea vomiting heartburn indigestion. Bowels are working without any gross blood in it.. He is eating better. His weight has gone up. He appears to be in good spirits. Rest of the review of systems is unremarkable. He has received the COVID vaccine. Previous history: He was seen a couple of months ago, when he was noted to have increasing edema over his feet and hands and arms. He had been noted to have bruising on the upper and lower extremities. He had a decline in his appetite. He appeared to be rather lethargic. He is wheel chair bound, he can only transfer but not walk without assistance. His ammonia level was elevated. He has had some diarrhea here in there he was on MOM daily that has been discontinued. He was evaluated by Dr. Hu. He increased his Lasix dose. He put on Donta stockings. He increase the Aldactone. He added folic acid and iron to his regimen. He also discontinued his morphine and decrease the dose of Ativan. The nurse, Debra mentioned that he is feeling a little better. Review of Systems - Constitutional Reports no additional constitutional complaints - Eyes Reports no additional eye complaints - ENT Reports no additional ear, nose, mouth, and throat complaints - Cardiovascular Reports no additional cardiovascular complaints - Respiratory Reports no additional respiratory complaints - Gastrointestinal Reports no additional gastrointestinal complaints - Genitourinary Genitourinary: Reports no additional male genitourinary complaints - Musculoskeletal Reports no additional musculoskeletal complaints - Integumentary/Breasts Skin/Breast: Reports no additional skin complaints - Neurologic Reports no additional neurologic complaints, Reports confusion, Reports memory loss - Psychiatric Reports no additional psychiatric complaints - Endocrine Reports no additional endocrine complaints - Hematologic/Lymphatic Reports no additional hematologic/lymphatic complaints - Allergic/Immunologic Reports no additional allergic/immunologic complaints [facility] Medical History: Medical History (Last Reviewed 05/31/20 @ 11:20 by Qi Ruff RN) Alcohol abuse Alcoholic peripheral neuropathy Anxiety C. difficile diarrhea Chronic hepatitis Chronic pain syndrome COPD (chronic obstructive pulmonary disease) Depression Dysphagia HCC (hepatocellular carcinoma) Hepatitis C HTN (hypertension) Liver cancer Polysubstance abuse Functional capacity: uses cane/walker Patient : No Family History: Family History (Last Updated 02/15/20 @ 10:00 by Alysha Begum) Brother Hepatitis C AIDS Mother Liver cancer Sister Cancer Surgical History: Surgical History (Last Reviewed 05/31/20 @ 11:20 by Qi Ruff RN) History of colonoscopy History of hernia repair Hx of endoscopy Social History: Social History (Last Updated 02/23/20 @ 08:23 by Janeth Fields CMA) Alcohol History: Alcohol intake: former Alcohol History Quit Date: Year quit: 15 Tobacco History: Tobacco Type: Cigarette Advance Directives: Advance Directives: No Advance Directives Information Provided: No Advance Directives Date on File: 01/26/20 Nutrition Assessment: Patient : No Home Medications and Allergies Home Medications Medication Instructions Recorded Confirmed Type albuterol sulfate 2.5 mg INHALATION Q4-6H PRN 01/15/20 01/15/20 History amlodipine 10 mg PO BID 01/15/20 05/31/20 History docusate sodium 100 mg PO DAILY 01/15/20 05/31/20 History escitalopram oxalate 10 mg PO DAILY 01/15/20 01/15/20 History furosemide 60 mg PO QAM 01/15/20 02/26/20 History gabapentin [Neurontin] 200 mg PO TID 01/15/20 05/31/20 History hydralazine 20 mg PO Q8-10H 01/15/20 05/31/20 History labetalol 100 mg PO BID 01/15/20 01/15/20 History loperamide 2 mg PO Q4H PRN 01/15/20 01/15/20 History lorazepam 1 mg PO BID PRN 01/15/20 01/15/20 History omeprazole 20 mg PO DAILY 01/15/20 01/15/20 History clonidine HCl 0.2 mg PO TID 02/26/20 02/26/20 History ferrous sulfate 325 mg PO BID 02/26/20 02/26/20 History folic acid 1 mg PO DAILY 02/26/20 02/26/20 History ipratropium-albuterol [DuoNeb] 3 ml INHALATION Q4-6H PRN 02/26/20 02/26/20 History levothyroxine 112 mcg PO DAILY 02/26/20 05/31/20 History cholecalciferol (vitamin D3) 125 mcg PO DAILY 05/31/20 05/31/20 History [Vitamin D3] oxycodone 2.5 mg PO Q4H PRN 05/31/20 05/31/20 History oxycodone 5 mg PO Q6H 05/31/20 05/31/20 History prednisone 30 mg PO DAILY 05/31/20 05/31/20 History spironolactone 50 mg PO DAILY 05/31/20 05/31/20 History Allergies Allergy/AdvReac Type Severity Reaction Status Date / Time acetaminophen [From TYLENOL] Allergy Unknown RASH Verified 02/26/20 14:23 aspirin [ASA] Allergy Unknown HIVES Verified 02/26/20 14:23 metoprolol [From TOPROL XL] Allergy Unknown RASH Verified 02/26/20 14:23 ibuprofen Allergy Unknown Verified 05/31/20 11:21 Exam Vital signs: Vital Signs Temp 97.6 F 05/31/20 11:18 Pulse 71 05/31/20 11:18 Resp 16 05/31/20 11:18 BP 137/75 05/31/20 11:18 Pulse Ox 95 05/31/20 11:18 Intake & Output 05/30/20 05/31/20 05/31/20 18:59 06:59 18:59 Other: Weight 78.6 kg [place] Weight in Grams 17120 Weight 78.6 kg Body Mass Index 31.6 - Constitutional Present: no acute distress - Routine HEENT Exam Head: Present: normal inspection Eye: Present: normal appearance ENT: Present: mucous membranes moist - Routine Neck Exam Present: full ROM, normal inspection - Routine Respiratory Exam Present: CTAB - Routine Cardiovascular Exam Cardiovascular: Present: RRR, S1, S2 - Routine Abdominal Exam Present: soft, tenderness. Absent: nontender - Routine Extremities Exam Present: pedal edema, tenderness, nontender - Routine Back/Spine/Pelvis Exam Back/Spine: Present: full ROM - Routine Skin Exam Present: intact, ecchymosis - Routine Neurological Exam Present: alert, oriented X3. Absent: asterixis - Detailed Neurological Exam: Coma Scale Eye Opening: Spontaneous (4) - Routine Psychiatric Exam Present: normal affect Data - Labs CBC & Chem 7: 05/31/20 11:10 05/31/20 11:10 Labs: 01/15/20 12:54 AFP [Alpha Fetoprotein] Routine Complete Blood Count Auto Diff Routine Comprehensive Met. Panel Routine 02/15/20 13:20 Alpha Fetoprotein Routine CMP [Comprehensive Met. Panel] Routine Complete Blood Count Auto Diff Routine 04/04/20 10:12 SLIDE REVIEW Routine 04/04/20 10:12 Alpha Fetoprotein Routine Complete Blood Count Auto Diff Routine Comprehensive Met. Panel Routine Laboratory Last Values WBC 8.0 X10*3/uL (4.8-10.8) 04/04/20 10:12 RBC 3.34 X10*6/uL (4.60-5.80) L 04/04/20 10:12 Hgb 10.2 g/dl (14.0-18.0) L 04/04/20 10:12 Hct 33.0 % (42-52) L 04/04/20 10:12 MCV 98.8 fL (80-98) H 04/04/20 10:12 MCH 30.5 pg (27.0-33.0) 04/04/20 10:12 MCHC 30.9 g/dl (31.0-36.0) L 04/04/20 10:12 RDW 18.6 % (11.0-16.0) H 04/04/20 10:12 Plt Count 279 X10*3/uL (160-400) 04/04/20 10:12 MPV 9.6 fL (9.4-12.4) 04/04/20 10:12 Immature Gran % (Auto) 0.4 % (0.0-0.4) 04/04/20 10:12 Neut % (Auto) 83.2 % (45-73) H 04/04/20 10:12 Lymph % (Auto) 8.6 % (20-40) L 04/04/20 10:12 [place] % (Auto) 7.0 % (2-11) 04/04/20 10:12 Eos % (Auto) 0.8 % (0-4) 04/04/20 10:12 Baso % (Auto) 0.0 % (0-2) 04/04/20 10:12 Lymph # (Auto) 0.7 X10*3/uL (1.2-4.9) L 04/04/20 10:12 [place] # (Auto) 0.6 X10*3/uL (0.1-1.2) 04/04/20 10:12 Eos # (Auto) 0.1 X10*3/uL (0.0-0.4) 04/04/20 10:12 Baso # (Auto) 0.0 X10*3/uL (0.0-0.2) 04/04/20 10:12 Abs Immat Gran (auto) 0.03 X10*3/uL (0.00-0.03) 04/04/20 10:12 Absolute Neuts (auto) 6.7 X10*3/uL (2.0-8.3) 04/04/20 10:12 Absolute Nucleated RBC 0.000 X10*3/uL (0.0-0.012) 04/04/20 10:12 Nucleated RBC % (auto) 0.0 /100WBC (0.0-0.2) 04/04/20 10:12 Smear Tech's Comments VERIFIED 04/04/20 10:12 Sodium 141 mmol/L (135-145) 04/04/20 10:12 Potassium 4.5 mmol/l (3.3-5.1) 04/04/20 10:12 Chloride 111 mmol/L (96-108) H 04/04/20 10:12 Carbon Dioxide 24 mmol/L (22-29) 04/04/20 10:12 Anion Gap 11 (12-20) L 04/04/20 10:12 BUN 34 mg/dL (9-16) H 04/04/20 10:12 Creatinine 0.98 mg/dL (0.5-1.4) 04/04/20 10:12 Estim Creat Clear Calc 66.6 04/04/20 10:12 Estimated GFR > 60 04/04/20 10:12 Random Glucose 100 mg/dL (60-115) 04/04/20 10:12 Calcium 7.1 mg/dL (8.4-10.2) L 04/04/20 10:12 Total Bilirubin 0.4 mg/dL (0.0-1.0) 04/04/20 10:12 AST 30 U/L (5-37) D 04/04/20 10:12 ALT 50 U/L (0-40) H 04/04/20 10:12 Alkaline Phosphatase 92 U/L (39-117) 04/04/20 10:12 Total Protein 5.0 g/dL (6.5-8.0) L 04/04/20 10:12 Albumin 2.1 g/dL (3.5-5.0) L 04/04/20 10:12 Alpha Fetoprotein 50.5 ng/mL (<6.1) H 04/04/20 10:12 Progress Note: A/P (1) HCC (hepatocellular carcinoma) Status: Acute Assessment and plan: This is an Unfortunate 69 old gentleman, with history of Chronic Hepatitis C, complicated by HCC, treated with resection 12/15, who presented with recurrent multifocal HCC. ? of PV involvement with tumour versus thrombus on CT scan. However, ultrasound of the abdomen ruled out portal vein thrombosis. Labs are not suggestive of cirrhosis (normal platelet count, INR and albumin level). Hepatitis serologes positive for hep C, history of hep A. HIV negative. He had Recurrent HCC, post treatment. Alpha-fetoprotein: Jan 11.4. He had been on Sorafanib, for 2-3 years, in the past. I offered him Lenvatinib. His dose came to 12 milligram daily, for his weight. He started it on February 01, 2018. Initially, it was very encouraging that he was tolerating it well and his alpha-fetoprotein has been declining. It was very encouraging that he was tolerating it well and his alpha-fetoprotein has been declining. He had a CT scan of the abdomen December 02 which revealed: 1. Postsurgical right hepatectomy. 2. The multiple lesions of the liver are better demonstrated on prior ultrasound and postcontrast CAT scan studies and on this noncontrast exam. 3. Linear metallic foreign body that is likely a surgical clip associated with the wall of the cardia the stomach. Correlate with history. 4. Diverticulosis of colon. No acute abnormality of the bowel. 5. Status post Cholecystectomy.. Chronic dilatation of the CBD. 6. Stable bilateral renal cysts. No hydronephrosis or calculus of either kidney. However, He had a CT Scan of the abdomen on April 09: 1. There is increase in size and number of hepatic lesions, as detailed above. No lymphadenopathy or free fluid is seen. 2. There are postoperative changes consistent with a prior right hepatectomy. My concern was about disease progression. He had a biopsy, of one of the liver lesions, on April 24 by IR. Results: Liver, lesion, biopsy: HEPATOCELLULAR CARCINOMA, MODERATELY-DIFFERENTIATED. Per report, immunohistochemistry for PD-L1 (performed upon clinical request) is NEGATIVE. He has been doing reasonably well. He has been on Cabozantinib, for > 6 months. His appetite had declined despite the Megace. He has had some memory decline and intermittent confusion. Concern was if the medication has anything to do with it. He has been getting labs done every week at [facility]. His labs are actually quite reasonable. His medications [facility] That does appear to have helped. In view of his recent effects of extremity edema, and excessive bruising, I had elected to hold the the cabozantinib for a couple of weeks. It appears that lower extremity and upper extremity edema and bruising, have improved. I checked his tumor marker: AFP, to gauge his response. This went up to 18.9. However, l checked a CT scan of the abdomen for further restaging. This revealed: Partial right hepatectomy. Decreased prominence of posttreatment change at segment 5 of the liver. Adjacent hypoattenuating lesions are either similar or decreased in size. Hypoattenuating heterogeneous ablation site at the caudate is similar to the prior study. There is a somewhat hypoattenuating lobulated area in segment 5 of the liver more inferiorly which is nonspecific. The overall size of this area is similar to prior. There is a peripheral area of significant hypoattenuation which has decreased in prominence from prior. The result indicated cabozantinib was working. However subsequently he had bullous pemphigoid. The cabozantinib was put on hold and he was started on steroid. He is on taper down to 30 mg this week. I addressed the options of going on to an other targeted agent versus monitoring him. He has gone through the gamut of the agents for HCC. He lately has had more toxicity. Finally he is recovering. He has good quality of life. My concern is restarting him on another agent may affect that without providing him with any long-term benefit. He is agreeable to that. PLAN: The plan is to follow him along. He will return in 3 months for a follow-up visit. He will be taken care of by Dr. Mcdaniel at the sold his home. Thank you, CC: Dr. Ty. Dr. Mcdaniel. Dr. Hu. - Time Spent With Patient Total time spent is greater than 50% in coordination of care (as documented) at patient's floor/unit and/or counseling patient: 25 - 35 minutes
[2020-05-31 11:50] LABS: Basophils Percent Auto 0.2 % (0-2); Eosinophils Absolute Auto 0.1 X10*3/uL (0.0-0.4); Eosinophils Percent Auto 0.9 % (0-4); Hematocrit 35.1 % (42-52); Hemoglobin 10.7 g/dl (14.0-18.0); Imm Gran Abs Auto 0.16 X10*3/uL (0.00-0.03); Imm Gran Pct Auto 1.4 % (0.0-0.4); Lymphocytes Absolute Auto 0.9 X10*3/uL (1.2-4.9); Lymphocytes Percent Auto 7.3 % (20-40); Mean Corpuscular HGB Conc 30.5 g/dl (31.0-36.0); Mean Corpuscular Hemoglobin 29.1 pg (27.0-33.0); Mean Corpuscular Volume 95.4 fL (80-98); Mean Platelet Volume 10.3 fL (9.4-12.4); Monocytes Absolute Auto 0.5 X10*3/uL (0.1-1.2); Monocytes Percent Auto 4.4 % (2-11); Neutrophils Percent Auto 85.8 % (45-73); Platelet Count 252 X10*3/uL (160-400); Red Blood Count 3.68 X10*6/uL (4.60-5.80); Red Cell Distribution Width 19.5 % (11.0-16.0); White Blood Count 11.7 X10*3/uL (4.8-10.8)
[2020-05-31 12:14] LABS: Alanine Aminotransferase 70 U/L (0-40); Alkaline Phosphatase 303 U/L (39-117); Anion Gap 15 (12-20); Aspartate Amino Transferase 48 U/L (5-37); Bilirubin Total 0.3 mg/dL (0.0-1.0); Blood Urea Nitrogen 48 mg/dL (9-16); Calcium 8.4 mg/dL (8.4-10.2); Carbon Dioxide 22 mmol/L (22-29); Chloride 109 mmol/L (96-108); Creatinine Clr Calc Pharmacy 40.1; Estimated Glomerular Filt Rate 43; Glucose Random 108 mg/dL (60-115); Potassium 5.4 mmol/L (3.3-5.1); Sodium 141 mmol/L (135-145); Total Protein 5.9 g/dL (6.5-8.0)
--- NOTE | 2020-05-31 12:30 | MHC.HEMONC ---
Pt here for follow-up accompanied by facility staff member. Labs drawn. Clinical summary updated with nurse. Provider seen patient. Follow-up booked.
[2020-06-01 12:02] LABS: Alpha Fetoprotein 1590.9 ng/mL (<6.1)
== END | disposition home or self-care (01) ==
LOC: HO.ONC 01-15 12:45
PROVIDERS: PCP Internal Medicine Medical Oncology; Visit Provider Internal Medicine Medical Oncology
DX: C22.0 Liver cell carcinoma (principal); B18.2 Chronic viral hepatitis C; R21 Rash and other nonspecific skin eruption; Z79.52 Long term (current) use of systemic steroids; Z79.899 Other long term (current) drug therapy
CPT/HCPCS: 36415; 80053; 82105; 85025; 99214